=== PATIENT | female | born 1960 | race Caucasian/White ===

== ENCOUNTER → 2017-10-05 01:01 | Outpatient (CLI) | payer MEDICARE, MEDICAID, SELFPAY ==
[2017-10-05] MEDS: Breeza Beverage 473 ML BTL PO ×2 (09:32→09:33)
[2017-10-05] MEDS: Omnipaque 350 MG/ML 50 ML BTL PO (09:33)
[2017-10-05] MEDS: Omnipaque 350 MG/ML 100 ML BTL IV (11:09)
--- NOTE | 2017-10-05 11:14 | DI.RPTCT_ITS ---
SYMPTOM/DIAGNOSIS: ABD BLOATING, R14.0, ABNL WT LOSS R53.4. ABD DISCOMFORT, SEVERE CONSTIPATION CT ABDOMEN AND PELVIS: CT scan of the abdomen and pelvis was performed following the uneventful administration of intravenous and oral contrast material. Comparison is . The visualized lung bases are clear. There is no evidence of an hepatic mass. The patient is status post cholecystectomy. No biliary ductal dilatation is seen. The portal and superior mesenteric veins are patent. The pancreas, spleen and adrenal glands are unremarkable. The kidneys show normal and symmetric enhancement. There is a cyst again seen in the mid pole of the right kidney. There is a calcification seen in the left renal pelvis with mild dilatation of the left renal collecting system. It has migrated in to the renal pelvis compared to the examination from 2016. The left kidney is otherwise unremarkable. The urinary bladder is intact. The reproductive organs appear absent. Please refer to the patient's surgical history. There is atherosclerosis of the abdominal aorta but no aneurysmal dilatation. No significant abdominal or pelvic adenopathy, ascites or pneumoperitoneum present. The bowel shows no evidence of obstruction or inflammation. There is a normal appendix present. There is fluid and stool seen throughout the colon. Particularly the descending and sigmoid colon. Degenerative changes are seen in the spine. IMPRESSION: 1. Calculus seen in the left renal pelvis with mild dilatation of the collecting system, partially obstructing stone should be considered. Please correlate clinically. 2. Fluid and stool filled distal colon. No evidence of a bowel inflammatory process or obstruction.
== END ==
PROVIDERS: PCP Family Medicine; Visit Provider Family Medicine
DX: R14.0 Abdominal distension (gaseous) (principal); R63.4 Abnormal weight loss; K59.00 Constipation, unspecified; N20.0 Calculus of kidney
CPT/HCPCS: 74177; Q9967; 36415; 82565; J3490

== ENCOUNTER → 2017-10-22 11:57 | Outpatient (CLI) | payer MEDICARE, MEDICAID, SELFPAY ==
[2017-10-22 12:22] LABS: Absolute Basophil Count 0.02 k/cumm (0.0-0.2); Absolute Eosinophil Count 0.06 k/cumm (0.0-0.7); Absolute Lymphocyte Count 1.78 k/cumm (1.2-3.4); Absolute Neutrophil Count 3.98 k/cumm (1.2-6.7); Basophils % 0.3; HCT 41.9 % (36.0-46.0); HGB 13.8 g/dL (12.0-15.5); Mean Corp. HGB Concentration 32.9 g/dL (32.0-36.0); Mean Corpuscular Hemoglobin 30.5 pg (27.0-33.0); Mean Corpuscular Volume 92.7 fL (80-95); Mean Platelet Volume 11.2 fL (8.0-11.0); Monocytes % 4.9; Neutrophils % 64.8; Platelet Count 203 x1000/uL (130-400); RBC 4.52 m/cumm (4.00-5.20); RBC Distribution Width 13.6 % (11.7-14.6); White Blood Cell Count 6.14 k/cumm (4.4-10.8)
[2017-10-22 13:22] LABS: Lithium 0.92 mmol/L (0.60-1.20)
[2017-10-22 14:03] LABS: ALT 26 U/L (12-78); AST 15 U/L (15-37); Albumin 3.9 g/dL (3.4-5.0); Alkaline Phosphatase 73 U/L (46-116); Anion Gap 6.5 mmol/L (3-11); BUN 12 mg/dL (7-18); Bilirubin, Total 0.4 mg/dL (0.2-1.0); CO2 26.5 mmol/L (21.0-32.0); CREATININE 0.84 mg/dL (0.55-1.02); Calcium 9.6 mg/dL (8.5-10.1); Chloride 109 mmol/L (98-107); Glucose 130 mg/dL (70-100); Potassium 4.1 mmol/L (3.5-5.1); Sodium 142 mmol/L (136-145); TSH (W/Ref FT4) 0.04 uIU/mL (0.358-3.74); Total Protein 7.3 g/dL (6.4-8.2)
[2017-10-22 14:26] LABS: FREE T4 1.23 ng/dL (0.76-1.46)
== END ==
PROVIDERS: PCP Nurse Practitioner Adult Health; Visit Provider Nurse Practitioner Psychiatric/Mental Health
DX: N20.0 Calculus of kidney (principal); F31.9 Bipolar disorder, unspecified; Z51.81 Encounter for therapeutic drug level monitoring; Z79.899 Other long term (current) drug therapy
CPT/HCPCS: 36415; 80053; 99215; 80178; 84439; 84443; 85025

== ENCOUNTER 2017-11-05 11:54 | Day surgery (SDC) | payer MEDICARE, MEDICAID, SELFPAY ==
[2017-11-05 12:25] VITALS: BP 114/75; PULSE 58; RESP 16; TEMP 37.3; O2SAT 99
--- NOTE | 2017-11-05 14:14 | NUR.NOTE ---
Addendum entered by Zuly Awad 11/05/17 14:17: from [facility], who expressed concern about it pt. were to go home( specifically on pain medications or it pt. were to run a fever) she would be home alone, case decided to be postponed until it can be arranged for patient to stay overnight for observation Original Note: 1328: MD in to see pt. and after talking to Randi Angeles,Nursing Note:
== END 2017-11-05 13:28 | disposition home or self-care (01) ==
LOC: SUR 11:55
PROVIDERS: PCP Family Medicine; Visit Provider Urology
DX: N20.0 Calculus of kidney (principal); Z53.8 Procedure and treatment not carried out for other reasons; Y66 Nonadministration of surgical and medical care
CPT/HCPCS: 52353

== ENCOUNTER 2017-11-12 15:46 | Observation (INO) | payer MEDICARE, MEDICAID, SELFPAY ==
[2017-11-12] VITALS (7 sets, daily range): BP systolic 117–123; BP diastolic 67–79; PULSE 58–60; RESP 16–22; TEMP 36.3–37.4; O2SAT 96–100
[2017-11-12] MEDS: Lactated Ringers 1,000 ML 80 ML IV (13:08)
--- NOTE | 2017-11-12 13:56 | W.PM.HP.N ---
Assessment and Plan (1) Calculus of left kidney: Current visit: Yes Status: Acute Will proceed with flexible ureteroscopy with stone manipulation. History of Present Illness Chief Complaint: Left kidney stone Narrative: This is a 57 year old woman who was evaluated for abdominal bloating and weight loss. She had a CT scan that demonstrated a rather large left UPJ stone. She presents for stone manipulation. She has no fever, chills, nausea or vomiting. She has no current pain. The patient lives alone and has no one to stay with her overnight. She will be monitored here overnight as an observation status. Review of Systems Constitutional Denies chills and Denies fever(s) ENT Denies sore throat Cardiovascular Denies chest pain and Denies palpitations Respiratory Denies cough and Denies hemoptysis Gastrointestinal Denies abdominal pain Neurologic Denies convulsions Psychiatric Comments: bipolar Endocrine Denies palpitations Hematologic/Lymphatic Denies easy bleeding and Denies easy bruising PFSH Medical History Calculus of left kidney (Acute) Bipolar 1 disorder (Chronic) Colon polyp (Chronic) GERD (gastroesophageal reflux disease) (Chronic) Hx of hysterectomy (Chronic) Hyperlipidemia (Chronic) Hypothyroid (Chronic) Social History Smoking/Tobacco Use Status: Former Tobacco Use Surgical History History of section (Chronic) History of cholecystectomy (Chronic) History of colon resection (Chronic) History of hernia repair (Chronic) History of tonsillectomy (Chronic) History of tubal ligation (Chronic) Meds Home Medications Medication Instructions Recorded Confirmed Type omeprazole 20 mg PO DAILY 11/18/14 11/12/17 History olanzapine [Zyprexa] 20 mg PO HS 12/08/14 11/12/17 History lorazepam 1 mg PO HS PRN PRN 12/27/14 11/12/17 History levothyroxine 125 mcg PO DAILY 11/01/17 11/12/17 History lithium carbonate 900 mg PO HS 11/01/17 11/12/17 History lorazepam 1 mg PO HS 11/01/17 11/12/17 History pcopgop-xkapgpqpciwna-pvcpyyvd 250 mg PO PRN PRN 11/05/17 11/12/17 History [Excedrin Migraine] Allergies Allergy/AdvReac Type Severity Reaction Status Date / Time codeine [Codeine] Allergy Severe Anaphylaxsi Unverified 11/12/17 12:40 s glueten Allergy Intermediate Gi upset Uncoded 11/12/17 12:40 lactose intol Allergy Mild Gi upset Uncoded 11/12/17 12:40 msg AdvReac Mild GI Upset Uncoded 11/12/17 12:40 Exam Const General: comfortable Other: blunted affect Neck Neck: supple Resp Effort & Inspection: normal respiratory effort Auscultation: clear to auscultation bilaterally Cardio Rate: regular rate Heart Sounds: murmur GI Palpation: soft, no guarding and no masses Skin General skin exam: no jaundice Neuro General: alert, awake and oriented x3
--- NOTE | 2017-11-12 14:10 | DI.RAD_ITS ---
SYMPTOM/DIAGNOSIS: LT KIDNEY STONE OR RETROGRADE: Fluoroscopy Time: 39.7 seconds Intraoperative films demonstrate a left retrograde examination carried out by Dr. Eisenberg. Please see the procedure report for further information.
[2017-11-12] MEDS: Lidocaine 2% Jelly 11 ML SYR (15:03)
[2017-11-12] MEDS: IOHEXOL 50 ML (15:03)
--- NOTE | 2017-11-12 16:26 | ROE_ITS ---
DATE OF PROCEDURE: November 12, 2017 PREOPERATIVE DIAGNOSIS: Left kidney stone. POSTOPERATIVE DIAGNOSIS: Same. PROCEDURE: Cystoscopy; left retrograde pyelogram; left flexible ureteroscopy with holmium laser of s tone; evacuation of stone fragments; insert left ureteral stent. SURGEON: Timbo Eisenberg M.D. ANESTHESIA: General. COMPLICATIONS: None. ESTIMATED BLOOD LOSS: Minimal. HISTORY: This is a 57-year-old woman who was previously evaluated for abdominal bloating and weight loss. She had a CT scan completed. The scan demonstrated a rather large left kidney stone. The sto ne had migrated to the renal pelvis and was causing some mild hydronephrosis. She was not experiencing any symptoms from the stone, but given its size and location, as well as the hydronephrosis, we recommended treating the stone. OPERATIVE REPORT: The patient was brought to the operating room on 11/12/17. After successful induc tion of general anesthesia, she was placed in the dorsal lithotomy position. Her genitalia was prepp ed and draped. 2% Xylocaine jelly was instilled into the urethra to act as a local anesthetic. A 22 Guatemalan rigid cystoscope was passed through the urethra into the bladder. The bladder was inspec dany with a 30-degree lens. The bladder neck was entered and the bladder mucosa was inspected. The left ureteral orifice was milton ntified. The orifice was cannulated with a 6 Guatemalan access catheter. A retrograde film was obtaine d by injecting Omnipaque through the access catheter under fluoroscopic guidance. There appeared to be a very faint filling defect in the lower pole calyx. This would be consistent w ith her known kidney stone. A Glidewire was passed up through the access catheter and positioned such that the proximal end was i n the upper pole calyx. The access catheter and cystoscope were then withdrawn. A dual-lumen catheter was passed over the wire and a second wire was introduced. We chose one of the wires as a working wire and the other as a safety wire. We removed the dual-lumen catheter and passed a ureteral access sheath over the working wire. The wo rking wire was removed. The flexible cystoscope was then passed through the access sheath into the r enal pelvis. We were able to visualize the stone at the junction of the lower pole calyx and the renal pelvis. We treated the stone with a 272 micron holmium laser fiber. We used a power setting of 800 and a rate of 8. The stone fragmented very well. Once the stone was broken into more manageable fragments, we grasped each of the visible fragments in a ZeroTip stone basket and removed each fragment. Each of these we re collected and sent to pathology for chemical analysis. After multiple passages and stone evacuations, there was some clot remaining in the renal calyces. T his obscured our view somewhat. We elected to place a ureteral stent. When we remove her stent in a few weeks, we will plan on reintroducing the ureteroscope to make sure no additional stone fragments remain. We removed the access sheath. We placed a 4.8 Guatemalan variable-length stent over the safety wire. Th e proximal end could be seen in the upper pole calyx and the distal end was within the bladder. The patient tolerated this procedure well. There were no complications. cc: Jordan Reyes M.D.
[2017-11-12] MEDS: Lactated Ringers 1,000 ML 100 ML IV (16:50)
[2017-11-12] MEDS: Ketorolac 15 MG/ML VIAL IVP (18:52)
[2017-11-12] MEDS: traMADol 50 MG TAB PO (21:25)
[2017-11-12] MEDS: LORazepam 1 MG TAB PO (21:32)
[2017-11-12] MEDS: OLANZapine 10 MG TAB 20 MG PO (21:32)
[2017-11-13 00:06] VITALS: BP 107/63; PULSE 65; RESP 15; TEMP 37; O2SAT 94
[2017-11-13] MEDS: Lactated Ringers 1,000 ML 100 ML IV (03:27)
[2017-11-13] MEDS: Levothyroxine 125 MCG TAB PO (05:29)
--- NOTE | 2017-11-13 07:06 | W.PM.PROGNOT ---
Date of service: 11/13/17 Time of Service: 07:06 Assessment and Plan (1) Calculus of left kidney: Current visit: Yes Status: Acute Will discharge to home today She has a ureteral stent in place - she will need to return for a cysto with stent removal in 2 to 4 weeks She will then need a renal US to r/o silent hydronephrosis Subjective Interval history since last seen: POD #1 Pain well controlled. Pt had some nausea last evening but improved now. Wants to go home. Exam Narrative Exam Narrative: Looks well. Vital signs documented elsewhere Abdomen soft with no tenderness Objective Objective Clinical Data: Vital Signs Temp 37 C 11/13/17 00:06 Pulse 65 11/13/17 00:06 Resp 15 11/13/17 00:06 BP 107/63 11/13/17 00:06 Pulse Ox 94 L 11/13/17 00:06 Intake & Output 11/12/17 11/12/17 11/13/17 11:59 23:59 11:59 Intake Total 1400.000 / 3665.251 0181 / 1400 Output Total 300 / 300 Balance 1100.000 / 1425.430 5933 / 1400 Weight 68 kg Intake: IV 1100.000 / 5939.613 3315 / 1000 Oral 300 / 300 400 / 400 Output: Urine 300 / 300 Other: Urine Color Dark Red Urine Appearance Hematuria Emesis Description None Voiding Methods Toilet
--- NOTE | 2017-11-13 07:10 | PGE_ITS ---
Date of service: 11/13/17 Time of Service: 07:06 Assessment and Plan (1) Calculus of left kidney: Current visit: Yes Status: Acute Will discharge to home today She has a ureteral stent in place - she will need to return for a cysto with stent removal in 2 to 4 weeks She will then need a renal US to r/o silent hydronephrosis Subjective Interval history since last seen: POD #1 Pain well controlled. Pt had some nausea last evening but improved now. Wants to go home. Exam Narrative Exam Narrative: Looks well. Vital signs documented elsewhere Abdomen soft with no tenderness Objective Objective Clinical Data: Vital Signs Temp 37 C 11/13/17 00:06 Pulse 65 11/13/17 00:06 Resp 15 11/13/17 00:06 BP 107/63 11/13/17 00:06 Pulse Ox 94 L 11/13/17 00:06 Intake & Output 11/12/17 11/12/17 11/13/17 11:59 23:59 11:59 Intake Total 1400.000 / 6079.715 7130 / 1400 Output Total 300 / 300 Balance 1100.000 / 0429.631 6439 / 1400 Weight 68 kg Intake: IV 1100.000 / 9519.351 7098 / 1000 Oral 300 / 300 400 / 400 Output: Urine 300 / 300 Other: Urine Color Dark Red Urine Appearance Hematuria Emesis Description None Voiding Methods Toilet
--- NOTE | 2017-11-13 07:11 | W.PM.DS.N ---
Date of service: 11/13/17 Time of Service: 07:11 DS: Diagnosis Discharge Diagnosis (1) Calculus of left kidney: Status: Acute Discharge Plan Disposition Patient Disposition: HOME Condition: Stable Discharge Details Reason For Visit: L RENAL STONE Admit Date/Time: 11/12/17 15:46 Admit Provider: Timbo Eisenberg Attending Provider: Timbo Eisenberg Primary Care Provider: Jordan Reyes [facility] Course Hospital Course: The patient underwent flexible ureteroscopy with holmium laser lithotripsy and stone fragment evacuation on 11/12/17. She was kept overnight for IV antibiotics and pain control. She did quite well and is ready for discharge on POD #1. She is tolerating PO. Her pain is well controlled. She is afebrile. Home Meds and New Rx's Prescriptions: No Action tramadol 50 mg tablet 50 mg PO Q6H PRN (Reason: pain) Qty: 10 RF: 0 omeprazole 20 MG capsule,delayed release(DR/EC) 20 mg PO DAILY RF: 0 olanzapine [Zyprexa] 10 MG tablet 20 mg PO HS RF: 0 lorazepam 1 MG tablet 1 mg PO HS PRN PRNRF: 0 hydrocortisone 30 GM cream 1 applic Topical BID PRN PRNQty: 1 RF: 0 lithium carbonate 300 mg Tablet Extended Release 900 mg PO HS RF: 0 lorazepam 1 mg Tablet 1 mg PO HS RF: 0 levothyroxine 125 mcg Capsule 125 mcg PO DAILY RF: 0 frmrlmt-ancadqpihfpgz-ngdxjihg [Excedrin Migraine] 250-250-65 mg Tablet 250 mg PO PRN PRNRF: 0 Discharge Instructions Additional Instructions: Pt will be contacted by my office to arrange cysto with stent removal in 2 to 4 weeks Caution pt not to be alarmed if she notices blood in urine while stent is in place Activity:: Activity as Tolerated Equipment/Supplies:: No Equipment Needed Diet:: No restrictions Discharge Orders Discharge Orders: Discharge Order (Routine); Ordered 11/13/17 Ordered By: Timbo Eisenberg Exam Narrative Exam Narrative: At the time of discharge, she appears comfortable She does not appear septic or toxic Her abdomen is soft without mass or guarding DS: Data Vitals/I&O Vitals and I&O: Vital Signs Temp 37 C 11/13/17 00:06 Pulse 65 11/13/17 00:06 Resp 15 11/13/17 00:06 BP 107/63 11/13/17 00:06 Pulse Ox 94 L 11/13/17 00:06 Intake & Output 11/12/17 11/12/17 11/13/17 11:59 23:59 11:59 Intake Total 1400.000 / 4987.301 6070 / 1400 Output Total 300 / 300 Balance 1100.000 / 1282.471 3359 / 1400 Weight 68 kg Intake: IV 1100.000 / 1763.652 5946 / 1000 Oral 300 / 300 400 / 400 Output: Urine 300 / 300 Other: Urine Color Dark Red Urine Appearance Hematuria Emesis Description None Voiding Methods Toilet Labs on day of discharge: Labs from last 24 hours 11/12/17 15:32 Stone Analysis Pending Stone Source Pending Stone Constituent 1 Pending Stone Constituent 2 Pending Stone Constituent 3 Pending Major Stone Nidus Pending Minor Stone Nidus Pending Major Stone Shell Pending Minor Stone Shell Pending Stone Comment Pending
--- NOTE | 2017-11-13 07:19 | DSE_ITS ---
Date of service: 11/13/17 Time of Service: 07:11 DS: Diagnosis Discharge Diagnosis (1) Calculus of left kidney: Status: Acute Discharge Plan Disposition Patient Disposition: HOME Condition: Stable Discharge Details Reason For Visit: L RENAL STONE Admit Date/Time: 11/12/17 15:46 Admit Provider: Timbo Eisenberg Attending Provider: Timbo Eisenberg Primary Care Provider: Jordan Reyes [facility] Course Hospital Course: The patient underwent flexible ureteroscopy with holmium laser lithotripsy and stone fragment evacuation on 11/12/17. She was kept overnight for IV antibiotics and pain control. She did quite well and is ready for discharge on POD #1. She is tolerating PO. Her pain is well controlled. She is afebrile. Home Meds and New Rx's Prescriptions: No Action tramadol 50 mg tablet 50 mg PO Q6H PRN (Reason: pain) Qty: 10 RF: 0 omeprazole 20 MG capsule,delayed release(DR/EC) 20 mg PO DAILY RF: 0 olanzapine [Zyprexa] 10 MG tablet 20 mg PO HS RF: 0 lorazepam 1 MG tablet 1 mg PO HS PRN PRNRF: 0 hydrocortisone 30 GM cream 1 applic Topical BID PRN PRNQty: 1 RF: 0 lithium carbonate 300 mg Tablet Extended Release 900 mg PO HS RF: 0 lorazepam 1 mg Tablet 1 mg PO HS RF: 0 levothyroxine 125 mcg Capsule 125 mcg PO DAILY RF: 0 xrogqkv-ceewdvzttxofr-ubgqnhav [Excedrin Migraine] 250-250-65 mg Tablet 250 mg PO PRN PRNRF: 0 Discharge Instructions Additional Instructions: Pt will be contacted by my office to arrange cysto with stent removal in 2 to 4 weeks Caution pt not to be alarmed if she notices blood in urine while stent is in place Activity:: Activity as Tolerated Equipment/Supplies:: No Equipment Needed Diet:: No restrictions Discharge Orders Discharge Orders: Discharge Order (Routine); Ordered 11/13/17 Ordered By: Timbo Eisenberg Exam Narrative Exam Narrative: At the time of discharge, she appears comfortable She does not appear septic or toxic Her abdomen is soft without mass or guarding DS: Data Vitals/I&O Vitals and I&O: Vital Signs Temp 37 C 11/13/17 00:06 Pulse 65 11/13/17 00:06 Resp 15 11/13/17 00:06 BP 107/63 11/13/17 00:06 Pulse Ox 94 L 11/13/17 00:06 Intake & Output 11/12/17 11/12/17 11/13/17 11:59 23:59 11:59 Intake Total 1400.000 / 0845.225 5604 / 1400 Output Total 300 / 300 Balance 1100.000 / 0518.144 8787 / 1400 Weight 68 kg Intake: IV 1100.000 / 1750.585 6824 / 1000 Oral 300 / 300 400 / 400 Output: Urine 300 / 300 Other: Urine Color Dark Red Urine Appearance Hematuria Emesis Description None Voiding Methods Toilet Labs on day of discharge: Labs from last 24 hours 11/12/17 15:32 Stone Analysis Pending Stone Source Pending Stone Constituent 1 Pending Stone Constituent 2 Pending Stone Constituent 3 Pending Major Stone Nidus Pending Minor Stone Nidus Pending Major Stone Shell Pending Minor Stone Shell Pending Stone Comment Pending
[2017-11-13 07:27] VITALS: BP 89/59; PULSE 56; RESP 18; TEMP 36.5; O2SAT 97
[2017-11-13] MEDS: Omeprazole 20 MG CAPCR PO (07:50)
--- NOTE | 2017-11-13 10:20 | PDOC.CMIN ---
- If Service Date Differs Date of service: 11/13/17 Time of Service: 10:20 Care Management Initial Assess REASON FOR HOSPITALIZATION:: Calculus of (L) kidney PAST MEDICAL HISTORY/PAST SURGICAL HISTORY:: Bipolar 1 disorder, Colon polyp, GERD, Hyperlipidemia, Hypothyroid, H/O , Cholecystectomy, Hysterectomy, Colon resection, Hernia repair, Tonsillectomy, Tubal ligation PREVIOUS FUNCTIONAL STATUS/SOCIAL/FAMILY SUPPORTS:: Keri resides alone in [facility]. She is independent at baseline, drives, and manages ADL's. CURRENT FUNCTIONAL STATUS:: Lying in bed, open to discussion ADVANCE DIRECTIVES:: None on file Has patient been provided with information about the portal?: Yes Did the patient sign up for the portal?: Yes CODE STATUS:: Full Code INSURANCE COVERAGE / FINANCIAL ISSUES:: Medicare, Medicaid CURRENT HOME/COMMUNITY SERVICES/EQUIPMENT:: Currently Keri has no services or medical equipment in the community. PRIMARY CARE PHYSICIAN:: Dr. Reyes POTENTIAL DISCHARGE NEEDS:: F/U appointment with Dr. Eisenberg PATIENT/FAMILY EDUCATION NEEDS:: Review DC instructions, any limitations, and ongoing DC planning discussion. Discuss Ask Me Three ANTICIPATED BARRIERS TO DISCHARGE:: None identified at this time. TRANSPORTATION:: Via private vehicle PLAN:: Keir will return home with no services. She will F/U with Dr. Eisenberg and plan of care as prescribed. Keri to transport via private vehicle.
--- NOTE | 2017-11-13 10:35 | INITIAL_ITS ---
- If Service Date Differs Date of service: 11/13/17 Time of Service: 10:20 Care Management Initial Assess REASON FOR HOSPITALIZATION:: Calculus of (L) kidney PAST MEDICAL HISTORY/PAST SURGICAL HISTORY:: Bipolar 1 disorder, Colon polyp, GERD, Hyperlipidemia, Hypothyroid, H/O , Cholecystectomy, Hysterectomy , Colon resection, Hernia repair, Tonsillectomy, Tubal ligation PREVIOUS FUNCTIONAL STATUS/SOCIAL/FAMILY SUPPORTS:: Keri resides alone in [facility]. She is independent at baseline, drives, and manages ADL's. CURRENT FUNCTIONAL STATUS:: Lying in bed, open to discussion ADVANCE DIRECTIVES:: None on file Has patient been provided with information about the portal?: Yes Did the patient sign up for the portal?: Yes CODE STATUS:: Full Code INSURANCE COVERAGE / FINANCIAL ISSUES:: Medicare, Medicaid CURRENT HOME/COMMUNITY SERVICES/EQUIPMENT:: Currently Keri has no services or medical equipment in the community. PRIMARY CARE PHYSICIAN:: Dr. Reyes POTENTIAL DISCHARGE NEEDS:: F/U appointment with Dr. Eisenberg PATIENT/FAMILY EDUCATION NEEDS:: Review DC instructions, any limitations, and ongoing DC planning discussion. Discuss Ask Me Three ANTICIPATED BARRIERS TO DISCHARGE:: None identified at this time. TRANSPORTATION:: Via private vehicle PLAN:: Keri will return home with no services. She will F/U with Dr. Eisenberg and plan of care as prescribed. Keri to transport via private vehicle.
--- NOTE | 2017-11-13 10:36 | PDOC.CMDIS ---
- If Service Date Differs Date of service: 11/13/17 Time of Service: 10:36 LACE Index Scoring Tool - Questions: Length of Stay (in days): 2 Acuity (Admit via E.D.?): No E.D. Visits: 3 - Answers: Total Score: 5 Risk of Readmission: Low Risk Care Management Discharge Reason for Hospitalization: Calculus of (L) kidney Discharge Plan: Keri will return home today with no services. She will F/U with Dr. Eisenberg and plan of care as prescribed. Keri will transport via private vehicle.
== END 2017-11-13 11:20 | disposition home or self-care (01) ==
LOC: MS 16:52
PROVIDERS: Admitting Provider Urology; PCP Family Medicine; Visit Provider Urology
PROC: 0TF48ZZ Fragmentation in Left Kidney Pelvis, Via Natural or Artificial Opening Endoscopic (ICD-10-PCS; CPT 52356; principal; 2017-11-12 13:00)
DX: N20.0 Calculus of kidney (principal); E03.9 Hypothyroidism, unspecified; K21.9 Gastro-esophageal reflux disease without esophagitis
CPT/HCPCS: 52356; 99217; NC; 74420; 82360; G0378; J0131; J0690; J1100; J1885; J2250; J2405; J3010; J3490; Q9967

== ENCOUNTER 2017-12-10 10:50 | Day surgery (SDC) | payer MEDICARE, MEDICAID, SELFPAY ==
--- NOTE | 2017-12-10 10:51 | W.PM.HP.N ---
Assessment and Plan (1) Calculus of left kidney: Current visit: Yes Status: Resolved Will remove ureteral stent. After discharge, we will arrange a renal ultrasound in 4 to 6 weeks. History of Present Illness Chief Complaint: Retained left ureteral stent Narrative: This is a 57 year old woman who was previously identified as having a 1 cm left renal pelvic stone. She was treated with ureteroscopy and holmium laser of her stone with stone extraction. a stent was left in place. Her stone analysis demonstrates 100% calcium oxalate monohydrate. She presents for stent removal. She prefers to have the procedure done here in the OR rather than in the office. Review of Systems Constitutional Denies chills and Denies fever(s) Eyes Denies change in vision ENT Denies sinus pain Cardiovascular Denies chest pain, Denies syncope and Denies irregular heart rhythm Respiratory Denies cough and Denies hemoptysis Gastrointestinal Reports bloating Genitourinary Comments: Has had frequency and occasional dysuria since her stent was placed Musculoskeletal Reports arthralgias Neurologic Denies syncope PFSH Medical History Calculus of left kidney (Resolved) Bipolar 1 disorder (Chronic) Colon polyp (Chronic) GERD (gastroesophageal reflux disease) (Chronic) Hx of hysterectomy (Chronic) Hyperlipidemia (Chronic) Hypothyroid (Chronic) Social History Smoking/Tobacco Use Status: Former Tobacco Use Surgical History History of section (Chronic) History of cholecystectomy (Chronic) History of colon resection (Chronic) History of hernia repair (Chronic) History of tonsillectomy (Chronic) History of tubal ligation (Chronic) Meds Home Medications Medication Instructions Recorded Confirmed Type omeprazole 20 mg PO DAILY 11/18/14 12/10/17 History olanzapine [Zyprexa] 20 mg PO HS 12/08/14 12/10/17 History lorazepam 1 mg PO HS PRN PRN 12/27/14 12/10/17 History levothyroxine 125 mcg PO DAILY 11/01/17 12/10/17 History lithium carbonate 900 mg PO HS 11/01/17 12/10/17 History lorazepam 1 mg PO HS 11/01/17 12/10/17 History lxneoxz-dzllwelvdnovg-kkbiumdq 250 mg PO PRN PRN 11/05/17 12/10/17 History [Excedrin Migraine] tramadol 50 mg tablet 50 mg PO Q6H PRN #10 tab 11/13/17 12/10/17 Rx Allergies Allergy/AdvReac Type Severity Reaction Status Date / Time codeine [Codeine] Allergy Severe Anaphylaxsi Unverified 11/12/17 12:40 s glueten Allergy Intermediate Gi upset Uncoded 11/12/17 12:40 lactose intol Allergy Mild Gi upset Uncoded 11/12/17 12:40 msg AdvReac Mild GI Upset Uncoded 11/12/17 12:40 Exam Const General: cooperative, healthy appearing and comfortable Neck Neck: supple Resp Auscultation: clear to auscultation bilaterally Cardio Rate: regular rate GI Palpation: soft and no masses Skin General skin exam: no rashes or lesions noted Psych Affect: blunted
[2017-12-10 11:08] VITALS: BP 122/74; PULSE 59; RESP 16; TEMP 37.8; O2SAT 98
[2017-12-10] MEDS: Lactated Ringers 1,000 ML 80 ML IV (11:23)
[2017-12-10] MEDS: Lidocaine 2% Jelly 6 ML SYR (12:16)
--- NOTE | 2017-12-10 12:22 | W.PM.DSUDISC ---
Discharge Plan Disposition Patient Disposition: HOME Condition: Stable Discharge Details Reason For Visit: stent removal Attending Provider: Timbo Eisenberg Primary Care Provider: Jordan Reyes [place] Meds and New Rx's Prescriptions: No Action tramadol 50 mg tablet 50 mg PO Q6H PRN (Reason: pain) Qty: 10 RF: 0 omeprazole 20 MG capsule,delayed release(DR/EC) 20 mg PO DAILY RF: 0 olanzapine [Zyprexa] 10 MG tablet 20 mg PO HS RF: 0 lorazepam 1 MG tablet 1 mg PO HS PRN PRNRF: 0 lithium carbonate 300 mg Tablet Extended Release 900 mg PO HS RF: 0 lorazepam 1 mg Tablet 1 mg PO HS RF: 0 levothyroxine 125 mcg Capsule 125 mcg PO DAILY RF: 0 qxtzlwl-gcpvvyoyrobqc-tyzdried [Excedrin Migraine] 250-250-65 mg Tablet 250 mg PO PRN PRNRF: 0 Discharge Instructions Additional Instructions: F/U in 6 weeks - will need renal ultrasound on day of visit Activity:: Activity as Tolerated Diet:: As Tolerated Discharge Orders Discharge Orders: Discharge Order (Routine); Ordered 12/10/17 Ordered By: Timbo Eisenberg DS: Diagnosis Discharge Diagnosis (1) Calculus of left kidney: Status: Resolved
[2017-12-10 12:55] VITALS: BP 106/76; PULSE 54; RESP 18; TEMP 36.8; O2SAT 97
--- NOTE | 2017-12-10 14:26 | ROE_ITS ---
DATE OF PROCEDURE: December 10, 2017 PREOPERATIVE DIAGNOSIS: Left renal stone. POSTOPERATIVE DIAGNOSIS: Same. PROCEDURE: Flexible cystoscopy with stent removal. SURGEON: Timbo Eisenberg M.D. ANESTHESIA: Monitored Anesthesia Care with local. COMPLICATIONS: None. HISTORY: This is a 57-year-old woman who was being evaluated for abdominal discomfort and bloating. She was identified as having a 1 cm left renal pelvic stone. She was treated with flexible ureteros copy and holmium laser. Her stone fragments that were removed were identified as 100% calcium oxalat e monohydrate. She presents now for stent removal. She was not willing to have this done in the office, so she pres ents here to the operating room for the procedure under Monitored Anesthesia Care. OPERATIVE REPORT: The patient was brought to the operating room on 12/10/17. She was given monitore d anesthesia and placed in the frog leg position. Her genitalia was prepped. The flexible cystoscop e was passed through the urethra into the bladder. The stent could be seen protruding from the left ureteral orifice. The stent was grasped in an alligator forceps and removed in its entirety. The patient tolerated this procedure well with no complications. cc: Jordan Reyes M.D.
== END 2017-12-10 13:18 | disposition home or self-care (01) ==
PROVIDERS: PCP Family Medicine; Visit Provider Urology
PROC: 0TJB8ZZ Inspection of Bladder, Via Natural or Artificial Opening Endoscopic (ICD-10-PCS; CPT 52000; principal; 2017-12-10 12:00)
DX: Z45.89 Encounter for adjustment and management of other implanted devices (principal); Z96.0 Presence of urogenital implants
CPT/HCPCS: 52310; NC; J0690

== ENCOUNTER → 2017-12-11 09:43 | Outpatient (BNVA) | payer MEDICARE, MEDICAID, SELFPAY | PROVIDERS: PCP Family Medicine; Visit Provider Urology | DX: R69 Illness, unspecified (principal) ==

== ENCOUNTER 2018-01-22 00:55 | Outpatient (CLI) | payer MEDICARE, MEDICAID, SELFPAY ==
--- NOTE | 2018-01-22 09:00 | DI.US_ITS ---
SYMPTOM/DIAGNOSIS: F/U CYSTO AND STENT, ? RESIDUAL STONE OR HYDRONEPHROSIS RENAL ULTRASOUND: Comparison is made with CT dated 05 Oct 2017. The right kidney measures 7.5 cm in length. The left kidney measures 11.2 cm in length. No stones are identified. There is a question of mild left hydronephrosis. A 12 mm cyst is noted in the mid right kidney. The prevoid bladder volume measures 304 cc. There is a 25 cc post void residual. Both ureteral jets were visualized. IMPRESSION: Mild left hydronephrosis. No stones are visible.
== END 2018-01-22 01:15 ==
PROVIDERS: PCP Family Medicine; Visit Provider Urology
DX: N13.30 Unspecified hydronephrosis (principal); N28.1 Cyst of kidney, acquired
CPT/HCPCS: 36415; 51798; 76770; 80053; 99213; 80178; 84443; 85025

== ENCOUNTER 2018-01-22 10:34 | Outpatient (CLI) | payer MEDICARE, MEDICAID, SELFPAY ==
[2018-01-22 11:02] LABS: Abs Immature Grans 0.01 k/cumm (0.0-0.09); Absolute Basophil Count 0.03 k/cumm (0.0-0.2); Absolute Eosinophil Count 0.07 k/cumm (0.0-0.7); Absolute Monocyte Count 0.34 k/cumm (0.11-0.7); Absolute Neutrophil Count 4.69 k/cumm (1.2-6.7); Basophils % 0.4; HGB 13.5 g/dL (12.0-15.5); Immature Grans % 0.1; Mean Corp. HGB Concentration 32.9 g/dL (32.0-36.0); Mean Corpuscular Hemoglobin 31.1 pg (27.0-33.0); Mean Corpuscular Volume 94.5 fL (80-95); Mean Platelet Volume 11.3 fL (8.0-11.0); Monocytes % 4.8; Neutrophils % 66.7; Platelet Count 202 x1000/uL (130-400); RBC 4.34 m/cumm (4.00-5.20); RBC Distribution Width 13.1 % (11.7-14.6); White Blood Cell Count 7.04 k/cumm (4.4-10.8)
[2018-01-22 11:51] LABS: Lithium 0.99 mmol/L (0.60-1.20)
[2018-01-22 12:25] LABS: ALT 26 U/L (12-78); AST 16 U/L (15-37); Albumin 4.1 g/dL (3.4-5.0); Alkaline Phosphatase 71 U/L (46-116); Anion Gap 8.8 mmol/L (3-11); BUN 12 mg/dL (7-18); Bilirubin, Total 0.6 mg/dL (0.2-1.0); CO2 27.2 mmol/L (21.0-32.0); CREATININE 0.81 mg/dL (0.55-1.02); Calcium 10.3 mg/dL (8.5-10.1); Chloride 108 mmol/L (98-107); Glucose 97 mg/dL (70-100); Potassium 4.5 mmol/L (3.5-5.1); Sodium 144 mmol/L (136-145); TSH (W/Ref FT4) 0.58 uIU/mL (0.358-3.74); Total Protein 7.4 g/dL (6.4-8.2)
== END 2018-01-22 10:54 ==
PROVIDERS: PCP Family Medicine; Visit Provider Nurse Practitioner Psychiatric/Mental Health
DX: F31.9 Bipolar disorder, unspecified (principal); Z51.81 Encounter for therapeutic drug level monitoring; Z79.899 Other long term (current) drug therapy
CPT/HCPCS: 36415; 80053; 80178; 84443; 85025

== ENCOUNTER 2018-03-11 01:32 | Outpatient (CLI) | payer MEDICARE, MEDICAID, SELFPAY ==
--- NOTE | 2018-03-11 08:56 | DI.US_ITS ---
SYMPTOMS/DIAGNOSIS: MONITORING HYDRONEPHROSIS, N13.30 RENAL ULTRASOUND: Comparison is made with December,. There is stable mild to moderate left hydronephrosis. There is stable mild dilatation of the right renal pelvis. A small right renal cyst is seen. No stones are visible in either kidney. The prevoid bladder volume measured 769 cc. There is a 43 cc postvoid residual. Both the ureteral jets were visualized. IMPRESSION: Stable left hydronephrosis.
== END 2018-03-11 01:52 ==
PROVIDERS: PCP Family Medicine; Visit Provider Nurse Practitioner Gerontology
DX: N13.30 Unspecified hydronephrosis (principal); N28.1 Cyst of kidney, acquired
CPT/HCPCS: 76770

== ENCOUNTER 2018-03-19 01:11 | Outpatient (CLI) | payer MEDICARE, MEDICAID, SELFPAY ==
--- NOTE | 2018-03-19 08:18 | DI.CT_ITS ---
SYMPTOMS/DIAGNOSIS: HYDRONEPHROSIS LT, N13.30, ? STONE FRAGMENT FROM RECENT SX CAUSING HYDRO CT SCAN OF THE ABDOMEN AND PELVIS: Routine examination was performed. Comparison 10/05/17. Noncontrast CT scan of the abdomen and pelvis was performed. There is no evidence of nephrolithiasis or ureterolithiasis. There are again seen several phleboliths in the pelvis. The urinary bladder is intact. The patient is status post cholecystectomy. No evidence of an acute appendicitis is present. Following contrast administration, CT scan of the abdomen and pelvis was performed. The visualized lung bases are clear. The liver is normal in size. No suspicious hepatic mass is seen. The portal, superior mesenteric and splenic veins are patent. No biliary ductal dilatation is seen. The pancreas, spleen and adrenal glands are unremarkable. The kidneys show normal and symmetric enhancement. No evidence of a solid renal mass is present. There is a cyst seen in the right kidney. The urinary bladder is intact. The reproductive organs are grossly unremarkable as visualized. The abdominal aorta is of normal caliber with minimal atherosclerosis. No significant abdominal or pelvic adenopathy, ascites or pneumoperitoneum is present. Mild degenerative changes are seen in the spine. The 7 mm delayed images of the renal collecting system show no filling defects or obstruction. The urinary bladder is intact without filling defect. IMPRESSION: 1. No evidence of nephrolithiasis or hydronephrosis. 2. No evidence of a renal mass.
[2018-03-19 08:56] LABS: CREATININE 0.89 mg/dL (0.55-1.02)
[2018-03-19] MEDS: Omnipaque 350 MG/ML 100 ML BTL IJ (10:01)
== END 2018-03-19 01:31 ==
PROVIDERS: PCP Family Medicine; Visit Provider Nurse Practitioner Gerontology
DX: N13.30 Unspecified hydronephrosis (principal); N28.1 Cyst of kidney, acquired; N20.0 Calculus of kidney
CPT/HCPCS: 36415; 74178; 82565; J3490

== ENCOUNTER 2018-04-18 14:54 | Outpatient (CLI) | payer MEDICARE, MEDICAID, SELFPAY ==
[2018-04-18 15:36] LABS: Abs Immature Grans 0.02 k/cumm (0.0-0.09); Absolute Basophil Count 0.02 k/cumm (0.0-0.2); Absolute Lymphocyte Count 2.36 k/cumm (1.2-3.4); Absolute Monocyte Count 0.33 k/cumm (0.11-0.7); Absolute Neutrophil Count 6.19 k/cumm (1.2-6.7); Basophils % 0.2; Eosinophils % 1.1; HCT 40.6 % (36.0-46.0); HGB 13.8 g/dL (12.0-15.5); Immature Grans % 0.2; Lymphocytes % 26.2; Mean Corpuscular Hemoglobin 31.6 pg (27.0-33.0); Mean Corpuscular Volume 92.9 fL (80-95); Mean Platelet Volume 10.9 fL (8.0-11.0); Monocytes % 3.7; Neutrophils % 68.6; Platelet Count 254 x1000/uL (130-400); RBC 4.37 m/cumm (4.00-5.20); RBC Distribution Width 12.8 % (11.7-14.6); White Blood Cell Count 9.02 k/cumm (4.4-10.8)
[2018-04-18 16:55] LABS: Lithium 0.93 mmol/L (0.60-1.20)
[2018-04-18 17:07] LABS: ALT 20 U/L (12-78); AST 12 U/L (15-37); Albumin 3.9 g/dL (3.4-5.0); Alkaline Phosphatase 88 U/L (46-116); Anion Gap 9.4 mmol/L (3-11); BUN 11 mg/dL (7-18); Bilirubin, Total 0.5 mg/dL (0.2-1.0); CO2 26.6 mmol/L (21.0-32.0); CREATININE 0.87 mg/dL (0.55-1.02); Calcium 10.1 mg/dL (8.5-10.1); Chloride 108 mmol/L (98-107); Glucose 75 mg/dL (70-100); Potassium 3.8 mmol/L (3.5-5.1); Sodium 144 mmol/L (136-145); Total Protein 7.8 g/dL (6.4-8.2)
[2018-04-18 17:09] LABS: TSH (W/Ref FT4) 0.16 uIU/mL (0.358-3.74)
[2018-04-18 17:24] LABS: Vitamin D 25 Total 13.9 ng/ml (30-100)
[2018-04-18 18:03] LABS: FREE T4 1.34 ng/dL (0.76-1.46)
[2018-04-19 15:59] LABS: Ionized Calcium 1.29 mmol/L (1.12-1.32)
[2018-04-22 11:45] LABS: Hepatitis B Surface Ag Negative (NEGAT)
== END 2018-04-18 15:14 ==
PROVIDERS: Nurse Practitioner Psychiatric/Mental Health; PCP Family Medicine; Visit Provider Family Medicine
DX: F31.9 Bipolar disorder, unspecified (principal); Z51.81 Encounter for therapeutic drug level monitoring; Z79.899 Other long term (current) drug therapy; E83.52 Hypercalcemia; N20.0 Calculus of kidney; Z11.59 Encounter for screening for other viral diseases
CPT/HCPCS: 36415; 80053; 82306; 87340; 80178; 82330; 84439; 84443; 85025

== ENCOUNTER 2018-07-23 14:39 | Emergency (ER) | payer MEDICARE, MEDICAID, SELFPAY ==
[2018-07-23 14:48] VITALS: BP 119/84; PULSE 72; RESP 16; TEMP 37.1; O2SAT 96
[2018-07-23 15:00] VITALS: RESP 16
--- NOTE | 2018-07-23 15:09 | DI.CT_ITS ---
CT BRAIN: DIFFICULTY SPEAKING AND SHAKINESS Noncontrast examination. No priors. The ventricles and sulci are consistent with the patient's age. No evidence of an acute infarct, intracranial hemorrhage, midline shift or mass effect is identified. The ventricles are intact. The basilar cisterns are patent. The calvarium is intact. The visualized paranasal sinuses are clear. No fluid levels are seen. The mastoid air cells are well pneumatized. IMPRESSION: No acute intracranial process. The findings were discussed with Dr. Haskins of the Emergency Department on the date of the examination.
--- NOTE | 2018-07-23 15:11 | W.ED.GENAD ---
Discharge Plan Disposition Patient Disposition: HOME Condition: Good Discharge Details Chief Complaint: GenMedical Clinical Impression: Tremor, Creatinine elevation Primary Care Provider: Jordan Reyes ED Provider: Turner Haskins Home Meds and New Rx's Prescriptions: No Action tramadol 50 mg tablet 50 mg PO Q6H PRN (Reason: pain) Qty: 10 RF: 0 omeprazole 20 MG capsule,delayed release(DR/EC) 20 mg PO DAILY RF: 0 olanzapine [Zyprexa] 10 MG tablet 20 mg PO HS RF: 0 lorazepam 1 MG tablet 1 mg PO HS PRN PRNRF: 0 lithium carbonate 300 mg Tablet Extended Release 900 mg PO HS RF: 0 lorazepam 1 mg Tablet 1 mg PO HS RF: 0 levothyroxine 125 mcg Capsule 125 mcg PO DAILY RF: 0 Excedrin Migraine 250-250-65 mg Tablet 250 mg PO PRN PRNRF: 0 Discharge Instructions Additional Instructions: Your creatinine was slightly elevated at 1.14. This is concerning with your lithium level. There is no need for emergent dialysis at this time however he does require close monitoring by her family doctor Dr. berman. Please follow-up with him within the week for reassessment. Your CT scan of your head showed no significant abnormality per the radiologist. If you notice any worsening of your symptoms, or any new symptoms such as vomiting, diarrhea, fever, chills, shortness of breath, chest pain, numbness, weakness, or fainting , please return immediately to the emergency department for reevaluation. Please follow up with your primary care provider as soon as possible for reassessment and reevaluation. As always, it was a pleasure participating in your medical care today. Referrals: Jordan Reyes [Primary Care Provider] - Medical Decision Making This is a 57-year-old female with a past medical history of bipolar disorder and anxiety who takes lithium who presents today for evaluation of shakiness in which she describes as a speech impediment. She is originally from [place], but does speak fair [place]. She states that over the last year she has had these symptoms and they have been unchanged. She denies any change in her medications. Physical exam demonstrates no significant abnormalities. Neurologic exam is normal, no wide-based gait or ataxia. Tremor appears to be quite minimal, and she shows no signs of significant speech impediment. We will get a CT scan of the head to rule out acute intracranial process, evaluate for electrolyte abnormality and lithium toxicity. I feel his symptoms are most likely chronic in nature and part of her normal mental status, not necessarily secondary to a toxic level of lithium.. 4:29 PM Laboratory work-up has returned, lithium levels are at therapeutic level, no white count, normal CBC, electrolytes are all benign. Potassium is minimally low at 3.4. Creatinine is slightly elevated at 1.14, this is higher than baseline. No signs of hyperuricemia though. TSH is normal. The remainder of her work-up is otherwise benign. At this time I feel that the patient can be discharged home. CT scan is negative per . With no focal neurologic deficits, no evidence of severe Parkinson's, dementia, paranoia, schizophrenia, or other abnormalities, do not think that any further current work-up is indicated on an emergent basis. We will recommend close follow-up with Dr. berman within the week for further evaluation of her decreasing renal function. We discussed the importance of hydration with 10 to 12 cups of water per day this. This was also all discussed with the labor relations supervisor who is at bedside. I have extensively reviewed the treatment plan with the patient. I have addressed all patient concerns at this time. I have also discussed the plan with the admitting physician and they agree with the current assessment and plan and have agreed to assume responsibility for the patient. All parties demonstrate verbal understanding and agreement with our assessment and plan at this time. Exam(s) a CT:CT head wo CT BRAIN: DIFFICULTY SPEAKING AND SHAKINESS Noncontrast examination. No priors. The ventricles and sulci are consistent with the patient's age. No evidence of an acute infarct, intracranial hemorrhage, midline shift or mass effect is identified. The ventricles are intact. The basilar cisterns are patent. The calvarium is intact. The visualized paranasal sinuses are clear. No fluid levels are seen. The mastoid air cells are well pneumatized. IMPRESSION: No acute intracranial process. The findings were discussed with Dr. Haskins of the Emergency Department on the date of the examination. [id number]: Total DLP = 0.00 mGy-cm Ordered By: Turner Haskins DO HPI General Date/Time Provider Initiated Documentation: 07/23/18 14:47. HPI Narrative: This is a 57-year-old female with a past medical history of bipolar disorder and anxiety who presents today for evaluation of tremor and which she describes as a slight speech impediment. She states that for the past 5 to 6 months up to a year she has had mild shakiness and slight difficulty with her speech. She states that these have been consistent over the last 6 months to a year, and someone recommended that she get her lithium level checked for further evaluation. She does see Dr. berman, but has not brought the symptoms up with him. She denies any other complaints of chest pain, shortness of breath, headache, neck pain, fall, fever, chills, numbness, tingling, weakness, vomiting, diarrhea. No other complaints at this time. No other modifying factors. Related Data Home Medications Medication Instructions Recorded Confirmed omeprazole 20 mg PO DAILY 11/18/14 07/23/18 olanzapine [Zyprexa] 20 mg PO HS 12/08/14 07/23/18 lorazepam 1 mg PO HS PRN PRN 12/27/14 07/23/18 levothyroxine 125 mcg PO DAILY 11/01/17 07/23/18 lithium carbonate 900 mg PO HS 11/01/17 07/23/18 lorazepam 1 mg PO HS 11/01/17 07/23/18 [id number]-ooyhapbowcjzt-zcycmune 250 mg PO PRN PRN 11/05/17 07/23/18 [Excedrin Migraine] tramadol 50 mg tablet 50 mg PO Q6H PRN #10 tab 11/13/17 07/23/18 Previous Rx's Medication Instructions Recorded tramadol 50 mg tablet 50 mg PO Q6H PRN #10 tab 11/13/17 Allergies Allergy/AdvReac Type Severity Reaction Status Date / Time codeine [Codeine] Allergy Severe Anaphylaxsi Unverified 07/23/18 14:51 s glueten Allergy Intermediate Gi upset Uncoded 07/23/18 14:51 lactose intol Allergy Mild Gi upset Uncoded 07/23/18 14:51 msg AdvReac Mild GI Upset Uncoded 07/23/18 14:51 General Stated Complaint: GenMedical SANDRA: 3 Review of Systems Review of Systems All systems reviewed & are unremarkable except as noted in HPI and below PFSH Medical History Calculus of left kidney (Resolved) Bipolar 1 disorder (Chronic) Colon polyp (Chronic) GERD (gastroesophageal reflux disease) (Chronic) Hx of hysterectomy (Chronic) Hyperlipidemia (Chronic) Hypothyroid (Chronic) Surgical History History of section (Chronic) History of cholecystectomy (Chronic) History of colon resection (Chronic) History of hernia repair (Chronic) History of tonsillectomy (Chronic) History of tubal ligation (Chronic) Social History Smoking/Tobacco Use Status: Former Tobacco Use Drug use: Never Do you feel safe in your relationship?: Yes Exam Narrative Exam Narrative: 1.Const: Well-nourished, Well-developed, appearing stated age 2.Eyes: PERRL, no conjunctival injection, and symmetrical lids. 3.ENT: Atraumatic external nose and ears. Moist MM. Neck: Symmetric, trachea midline, No thyromegaly. 4.CVS: +S1/S2, No murmurs or gallops. Peripheral pulses 2+ and equal in all extremities. Brisk capillary refill in all extremities. 5.RESP: Unlabored respiratory effort. Clear to auscultation bilaterally. No wheezes rales or rhonchi 6.GI: Soft, Nontender/Nondistended, No hepatosplenomegaly. No guarding or rebound. 7.MSK: Normocephalic/Atraumatic, Extremities w/o deformity or ttp No cyanosis or clubbing, Normal movement of all extremities 8.Skin: Warm, Dry. No rashes or lesions. 9.Neuro: information technology account manager II-XII grossly intact. Sensation grossly intact, no focal neurologic deficits. All 6 cardinal planes of vision are fully intact. No evidence of rotatory or vertical nystagmus. The patient demonstrated a normal aoonbj-gttc-tlgxck, good dexterity. There was no evidence of dysdiadochokinesia. Patient was able to ambulate without difficulty. There was no wide-based gait. Romberg, and tvmy-vd-cyek are both normal on testing. Sensation was intact bilaterally as well as muscle strength bilaterally for all extremities. Patient was able to verbalize butter cup with no slurring, or miss pronunciation. Cerebellar function testing is normal. The patient demonstrates a normal hints exam with no findings concerning for a central event. No vertical nystagmus. The head impulse test is negative for any significant central abnormality. Normal test of skew. No suggestion of a central cerebellar event. 10.Psych: (AAO) x3. Appropriate mood and affect Course Vital Signs Temperature 37.1 C 07/23/18 14:48 Pulse 72 07/23/18 14:48 Respiratory Rate 16 07/23/18 14:48 Blood Pressure 119/84 07/23/18 14:48 Pulse Oximetry 96 07/23/18 14:48 Temperature 37.1 C 07/23/18 14:48 Temperature Source Skin 07/23/18 14:48 Pulse 72 07/23/18 14:48 Respiratory Rate 16 07/23/18 15:00 Respiratory Effort Non-Labored 07/23/18 15:00 Respiratory Depth Normal 07/23/18 15:00 Respiratory Pattern Normal 07/23/18 15:00 Blood Pressure 119/84 07/23/18 14:48 Blood Pressure Position Sitting 07/23/18 14:48 Pulse Oximetry 96 07/23/18 14:48 Oxygen Delivery Method Room Air 07/23/18 14:48 Oxygen Flow Rate 0 07/23/18 14:48 Pain Level 0 07/23/18 14:48
--- NOTE | 2018-07-23 15:21 | ED.GENADUL_ITS ---
Discharge Plan Disposition Patient Disposition: HOME Condition: Good Discharge Details Chief Complaint: GenMedical Clinical Impression: Tremor, Creatinine elevation Primary Care Provider: Jordan Reyes ED Provider: Turner Haskins Home Meds and New Rx's Prescriptions: No Action tramadol 50 mg tablet 50 mg PO Q6H PRN (Reason: pain) Qty: 10 RF: 0 omeprazole 20 MG capsule,delayed release(DR/EC) 20 mg PO DAILY RF: 0 olanzapine [Zyprexa] 10 MG tablet 20 mg PO HS RF: 0 lorazepam 1 MG tablet 1 mg PO HS PRN PRNRF: 0 lithium carbonate 300 mg Tablet Extended Release 900 mg PO HS RF: 0 lorazepam 1 mg Tablet 1 mg PO HS RF: 0 levothyroxine 125 mcg Capsule 125 mcg PO DAILY RF: 0 Excedrin Migraine 250-250-65 mg Tablet 250 mg PO PRN PRNRF: 0 Discharge Instructions Additional Instructions: Your creatinine was slightly elevated at 1.14. This is concerning with your lithium level. There is no need for emergent dialysis at this time however he does require close monitoring by her family doctor Dr. berman. Please follow-up with him within the week for reassessment. Your CT scan of your head showed no significant abnormality per the radiologist. If you notice any worsening of your symptoms, or any new symptoms such as vomiting, diarrhea, fever, chills, shortness of breath, chest pain, numbness, weakness, or fainting , please return immediately to the emergency department for reevaluation. Please follow up with your primary care provider as soon as possible for reassessment and reevaluation. As always, it was a pleasure participating in your medical care today. Referrals: Jordan Reyes [Primary Care Provider] - Medical Decision Making This is a 57-year-old female with a past medical history of bipolar disorder and anxiety who takes lithium who presents today for evaluation of shakiness in which she describes as a speech impediment. She is originally from [place], but does speak fair [place]. She states that over the last year she has had these symptoms and they have been unchanged. She denies any change in her medications. Physical exam demonstrates no significant abnormalities. Neurologic exam is normal, no wide-based gait or ataxia. Tremor appears to be quite minimal, and she shows no signs of significant speech impediment. We will get a CT scan of the head to rule out acute intracranial process, evaluate for electrolyte abnormality and lithium toxicity. I feel his symptoms are most likely chronic in nature and part of her normal mental status, not necessarily secondary to a toxic level of lithium.. 4:29 PM Laboratory work-up has returned, lithium levels are at therapeutic level, no white count, normal CBC, electrolytes are all benign. Potassium is minimally low at 3.4. Creatinine is slightly elevated at 1.14, this is higher than baseline. No signs of hyperuricemia though. TSH is normal. The remainder of her work-up is otherwise benign. At this time I feel that the patient can be discharged home. CT scan is negative per . With no focal neurologic deficits, no evidence of severe Parkinson's, dementia, paranoia, schizophrenia, or other abnormalities, do not think that any further current work-up is indicated on an emergent basis. We will recommend close follow-up with Dr. berman within the week for further evaluation of her decreasing renal function. We discussed the importance of hydration with 10 to 12 cups of water per day this. This was also all discussed with the credit risk analytics manager who is at bedside. I have extensively reviewed the treatment plan with the patient. I have addressed all patient concerns at this time. I have also discussed the plan with the admitting physician and they agree with the current assessment and plan and have agreed to assume responsibility for the patient. All parties demonstrate verbal understanding and agreement with our assessment and plan at this time. Exam(s) a CT:CT head wo CT BRAIN: DIFFICULTY SPEAKING AND SHAKINESS Noncontrast examination. No priors. The ventricles and sulci are consistent with the patient's age. No evidence of an acute infarct, intracranial hemorrhage, midline shift or mass effect is identified. The ventricles are intact. The basilar cisterns are patent. The calvarium is intact. The visualized paranasal sinuses are clear. No fluid levels are seen. The mastoid air cells are well pneumatized. IMPRESSION: No acute intracranial process. The findings were discussed with Dr. Haskins of the Emergency Department on the date of the examination. [id number]: Total DLP = 0.00 mGy-cm Ordered By: Turner Haskins DO HPI General Date/Time Provider Initiated Documentation: 07/23/18 14:47 . HPI Narrative: This is a 57-year-old female with a past medical history of bipolar disorder and anxiety who presents today for evaluation of tremor and which she describes as a slight speech impediment. She states that for the past 5 to 6 months up to a year she has had mild shakiness and slight difficulty with her speech. She states that these have been consistent over the last 6 months to a year, and someone recommended that she get her lithium level checked for further evaluation. She does see Dr. berman, but has not brought the symptoms up with him. She denies any other complaints of chest pain, shortness of breath, headache, neck pain, fall, fever, chills, numbness, tingling, weakness, vomiting, diarrhea. No other complaints at this time. No other modifying factors. Related Data Home Medications Medication Instructions Recorded Confirmed omeprazole 20 mg PO DAILY 11/18/14 07/23/18 olanzapine [Zyprexa] 20 mg PO HS 12/08/14 07/23/18 lorazepam 1 mg PO HS PRN PRN 12/27/14 07/23/18 levothyroxine 125 mcg PO DAILY 11/01/17 07/23/18 lithium carbonate 900 mg PO HS 11/01/17 07/23/18 lorazepam 1 mg PO HS 11/01/17 07/23/18 [id number]-lqnmgrwqpzgsl-ocjpcyjw 250 mg PO PRN PRN 11/05/17 07/23/18 [Excedrin Migraine] tramadol 50 mg tablet 50 mg PO Q6H PRN #10 tab 11/13/17 07/23/18 Previous Rx's Medication Instructions Recorded tramadol 50 mg tablet 50 mg PO Q6H PRN #10 tab 11/13/17 Allergies Allergy/AdvReac Type Severity Reaction Status Date / Time codeine [Codeine] Allergy Severe Anaphylaxsi Unverified 07/23/18 14:51 s glueten Allergy Intermediate Gi upset Uncoded 07/23/18 14:51 lactose intol Allergy Mild Gi upset Uncoded 07/23/18 14:51 msg AdvReac Mild GI Upset Uncoded 07/23/18 14:51 General Stated Complaint: GenMedical SANDRA: 3 Review of Systems Review of Systems All systems reviewed & are unremarkable except as noted in HPI and below PFSH Medical History Calculus of left kidney (Resolved) Bipolar 1 disorder (Chronic) Colon polyp (Chronic) GERD (gastroesophageal reflux disease) (Chronic) Hx of hysterectomy (Chronic) Hyperlipidemia (Chronic) Hypothyroid (Chronic) Surgical History History of section (Chronic) History of cholecystectomy (Chronic) History of colon resection (Chronic) History of hernia repair (Chronic) History of tonsillectomy (Chronic) History of tubal ligation (Chronic) Social History Smoking/Tobacco Use Status: Former Tobacco Use Drug use: Never Do you feel safe in your relationship?: Yes Exam Narrative Exam Narrative: 1.Const: Well-nourished, Well-developed, appearing stated age 2.Eyes: PERRL, no conjunctival injection, and symmetrical lids. 3.ENT: Atraumatic external nose and ears. Moist MM. Neck: Symmetric, trachea midline, No thyromegaly. 4.CVS: +S1/S2, No murmurs or gallops. Peripheral pulses 2+ and equal in all extremities. Brisk capillary refill in all extremities. 5.RESP: Unlabored respiratory effort. Clear to auscultation bilaterally. No wheezes rales or rhonchi 6.GI: Soft, Nontender/Nondistended, No hepatosplenomegaly. No guarding or rebound. 7.MSK: Normocephalic/Atraumatic, Extremities w/o deformity or ttp No cyanosis or clubbing, Normal movement of all extremities 8.Skin: Warm, Dry. No rashes or lesions. 9.Neuro: communications department chair II-XII grossly intact. Sensation grossly intact, no focal neurologic deficits. All 6 cardinal planes of vision are fully intact. No evidence of rotatory or vertical nystagmus. The patient demonstrated a normal simkac-higx-zrhyrc, good dexterity. There was no evidence of dysdiadochokinesia. Patient was able to ambulate without difficulty. There was no wide-based gait. Romberg, and cxes-nz-zfdq are both normal on testing. Sensation was intact bilaterally as well as muscle strength bilaterally for all extremities. Patient was able to verbalize butter cup with no slurring, or miss pronunciation. Cerebellar function testing is normal. The patient demonstrates a normal hints exam with no findings concerning for a central event. No vertical nystagmus. The head impulse test is negative for any significant central abnormality. Normal test of skew. No suggestion of a central cerebellar event. 10.Psych: (AAO) x3. Appropriate mood and affect Course Vital Signs Temperature 37.1 C 07/23/18 14:48 Pulse 72 07/23/18 14:48 Respiratory Rate 16 07/23/18 14:48 Blood Pressure 119/84 07/23/18 14:48 Pulse Oximetry 96 07/23/18 14:48 Temperature 37.1 C 07/23/18 14:48 Temperature Source Skin 07/23/18 14:48 Pulse 72 07/23/18 14:48 Respiratory Rate 16 07/23/18 15:00 Respiratory Effort Non-Labored 07/23/18 15:00 Respiratory Depth Normal 07/23/18 15:00 Respiratory Pattern Normal 07/23/18 15:00 Blood Pressure 119/84 07/23/18 14:48 Blood Pressure Position Sitting 07/23/18 14:48 Pulse Oximetry 96 07/23/18 14:48 Oxygen Delivery Method Room Air 07/23/18 14:48 Oxygen Flow Rate 0 07/23/18 14:48 Pain Level 0 07/23/18 14:48
[2018-07-23 15:29] LABS: Abs Immature Grans 0.01 k/cumm (0.0-0.09); Absolute Basophil Count 0.01 k/cumm (0.0-0.2); Absolute Eosinophil Count 0.06 k/cumm (0.0-0.7); Absolute Lymphocyte Count 1.51 k/cumm (1.2-3.4); Absolute Monocyte Count 0.22 k/cumm (0.11-0.7); Absolute Neutrophil Count 4.88 k/cumm (1.2-6.7); Basophils % 0.1; Eosinophils % 0.9; HCT 40.8 % (36.0-46.0); HGB 13.7 g/dL (12.0-15.5); Immature Grans % 0.1; Lymphocytes % 22.6; Mean Corp. HGB Concentration 33.6 g/dL (32.0-36.0); Mean Corpuscular Hemoglobin 31.1 pg (27.0-33.0); Mean Corpuscular Volume 92.7 fL (80-95); Monocytes % 3.3; Platelet Count 226 x1000/uL (130-400); RBC Distribution Width 12.9 % (11.7-14.6); White Blood Cell Count 6.69 k/cumm (4.4-10.8)
[2018-07-23 15:58] LABS: Lithium 0.84 mmol/L (0.60-1.20)
[2018-07-23 15:59] LABS: ALT 23 U/L (12-78); AST 14 U/L (15-37); Albumin 3.8 g/dL (3.4-5.0); Alkaline Phosphatase 92 U/L (46-116); Anion Gap 11.2 mmol/L (3-11); BUN 11 mg/dL (7-18); Bilirubin, Total 0.4 mg/dL (0.2-1.0); CO2 23.8 mmol/L (21.0-32.0); CREATININE 1.14 mg/dL (0.55-1.02); Calcium 9.9 mg/dL (8.5-10.1); Chloride 106 mmol/L (98-107); Estimated GFR 48.79 (mL/min/1.73m2); Glucose 151 mg/dL (70-100); Potassium 3.4 mmol/L (3.5-5.1); Sodium 141 mmol/L (136-145); Total Protein 7.7 g/dL (6.4-8.2)
== END 2018-07-23 16:39 | disposition home or self-care (01) ==
PROVIDERS: Emergency Provider Student in an Organized Health Care Education/Training Program; PCP Family Medicine
DX: R25.1 Tremor, unspecified (principal); R94.4 Abnormal results of kidney function studies; E87.6 Hypokalemia; F31.9 Bipolar disorder, unspecified
CPT/HCPCS: 36415; 80053; 99284; 70450; 80178; 84443; 85025; 99285

== ENCOUNTER 2018-08-01 13:31 | Outpatient (REF) | payer MEDICARE, MEDICAID, SELFPAY ==
[2018-08-01 18:37] LABS: Lithium 0.99 mmol/L (0.60-1.20)
[2018-08-01 18:41] LABS: Anion Gap 8.9 mmol/L (3-11); BUN 13 mg/dL (7-18); CO2 26.1 mmol/L (21.0-32.0); CREATININE 0.91 mg/dL (0.55-1.02); Calcium 10.2 mg/dL (8.5-10.1); Chloride 108 mmol/L (98-107); Glucose 89 mg/dL (70-100); Potassium 4.7 mmol/L (3.5-5.1); Sodium 143 mmol/L (136-145)
== END 2018-08-01 13:51 ==
LOC: NCHCN 13:31
PROVIDERS: PCP Family Medicine; Visit Provider Family Medicine
DX: F31.2 Bipolar disorder, current episode manic severe with psychotic features (principal); Z79.899 Other long term (current) drug therapy; Z51.81 Encounter for therapeutic drug level monitoring
CPT/HCPCS: 80048; 80178

== ENCOUNTER 2018-08-14 00:29 | Outpatient (CLI) | payer MEDICARE, MEDICAID, SELFPAY ==
--- NOTE | 2018-08-14 11:23 | DI.MRI_ITS ---
SYMPTOMS/DIAGNOSIS: SPEECH DISTURBANCE, R47.9, MONTHS OF SPEECH CHANGE-TROUBLE FINDING WORDS, SOME CHANGE IN PRONUNCIATION, SLIGHTLY GARBLED BRAIN MRI: T2 sagittal, T2 axial, diffusion axial, T2 axial HEMO, T1 axial and T2 axial FLAIR BLADE pulse sequences were performed. There are a number of small areas of increased signal in the frontoparietal white matter bilaterally. These findings are nonspecific but could well represent small vessel disease. The possibility of a demyelinating process could not be excluded. The ventricles are intact. The normal flow void is demonstrated in the cerebral vessels. SUMMARY: A number of small regions of increased signal in the frontoparietal white matter bilaterally likely represent small vessel disease; however, the possibility of a demyelinating process could not be excluded.
--- NOTE | 2018-08-14 12:40 | MERGE_ITS ---
*[facility]* *[facility]* [address] [place] [address] Date of study: 08/14/2018 Transthoracic Echocardiography M-mode, complete 2D, complete spectral Doppler, and color Doppler *STUDY CONCLUSIONS* Summary: 1. Left ventricle: The cavity size was normal. Wall thickness was normal. Systolic function was normal. The estimated ejection fraction was 60-65%. Wall motion was normal; there were no regional wall motion abnormalities. 2. Aortic valve: Trileaflet; mildly thickened leaflets. Valve mobility was restricted. There was mild stenosis. There was moderate regurgitation. Peak velocity (S): 2.5m/sec. Mean gradient (S): 13.1mm Hg. Valve area (VTI): 1.6cm^2. 3. Mitral valve: There was mild regurgitation. 4. Right ventricle: The cavity size was normal. Wall thickness was normal. Systolic function was normal. 5. Pulmonary arteries: Pulmonary systolic pressure was increased, in the range of 35mm Hg to 40mm Hg. *PATIENT PRESENTATION* Height: 160cm ((63in) ) S/D Pressure: 119 / 73 Weight: 65.8kg ((144.7lb) ) BSA: 1.72m^2 Test start time: 12:45 PM. Test stop time: 01:40 PM. 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 This study was interpreted by [facility]. Pertinent images and digital data are archived for permanent storage and are available for subsequent review. No prior study was available for comparison. Study status: Routine. Transthoracic echocardiography. M-mode, complete 2D, complete spectral Doppler, and color Doppler. A Transthoracic Echocardiogram was performed. Scanning was performed from the parasternal, apical, subcostal, and suprasternal notch acoustic windows. Images were obtained using an [id number] cardiac ultrasound machine. Image quality was adequate. Study completion: The patient tolerated the procedure well. There were no complications. History: PMH: Systolic heart mumur r01.1 speech disturbance r47.9. *CARDIAC ANATOMY* Left ventricle: The cavity size was normal. Wall thickness was normal. Systolic function was normal. The estimated ejection fraction was 60-65%. Wall motion was normal; there were no regional wall motion abnormalities. Diastolic parameters were normal for age. Aortic valve: Trileaflet; mildly thickened leaflets. Valve mobility was restricted. Doppler: There was mild stenosis. There was moderate regurgitation. VTI ratio of LVOT to aortic valve: 0.56. Valve area (VTI): 1.6cm^2. Indexed valve area (VTI): 0.9cm^2/m^2. Peak velocity ratio of LVOT to aortic valve: 0.59. Valve area (Vmax): 1.7cm^2. Indexed valve area (Vmax): 1cm^2/m^2. Mean velocity ratio of LVOT to aortic valve: 0.68. Valve area (Vmean): 1.9cm^2. Indexed valve area (Vmean): 1.1cm^2/m^2. Mean gradient (S): 13.1mm Hg. Peak gradient (S): 24.4mm Hg. Aorta: Aortic root: The aortic root was normal in size. Ascending aorta: The ascending aorta was normal in size. Mitral valve: Structurally normal valve. Mobility was not restricted. Doppler: Transvalvular velocity was within the normal range. There was no evidence for stenosis. There was mild regurgitation. Valve area by pressure half-time: 4.1cm^2. Indexed valve area by pressure half-time: 2.4cm^2/m^2. Peak gradient (D): 4.1mm Hg. Left atrium: The atrium was normal in size. Right ventricle: The cavity size was normal. Wall thickness was normal. Systolic function was normal. Pulmonic valve: Structurally normal valve. Doppler: Transvalvular velocity was within the normal range. There was no evidence for stenosis. There was trivial regurgitation. Peak gradient (S): 6.1mm Hg. Tricuspid valve: Structurally normal valve. Doppler: Transvalvular velocity was within the normal range. There was no evidence for stenosis. There was mild regurgitation. Pulmonary artery: Pulmonary systolic pressure was increased, in the range of 35mm Hg to 40mm Hg. Right atrium: The atrium was normal in size. Pericardium: There was no pericardial effusion. Systemic veins: Inferior vena cava: Well visualized. The vessel was patent and normal in size. The respirophasic diameter changes were in the normal range (greater than or equal to 50%). Baseline ECG: Bradycardia. Measurements Left ventricle Value Reference LV ID, ED, PLAX 4.2 cm 3.5 - 6.0 LV ID, ES, PLAX 2.8 cm 2.1 - 4.0 LV PW thickness, ED, PLAX 0.9 cm LV end-diastolic volume, 1-p A2C 94 ml LV ejection fraction, 1-p A2C 60 % LV end-diastolic volume, 1-p A4C 105 ml LV ejection fraction, 1-p A4C 59 % LV e', lateral 0.103 m/sec LV E/e', lateral 10 LV e', medial 0.094 m/sec LV E/e', medial 11 LV e', average 0.099 m/sec LV E/e', average 10 Ventricular septum Value Reference IVS thickness, ED, PLAX 1.1 cm LVOT Value Reference LVOT ID, S 1.9 cm LVOT ID, A-P 1.9 cm LVOT area 2.8 cm^2 LVOT peak velocity, S 1.45 m/sec LVOT mean velocity, S 1.16 m/sec LVOT VTI, S 30.7 cm LVOT peak gradient, S 8.5 mm Hg LVOT mean gradient, S 5.7 mm Hg Stroke volume (SV), LVOT DP 72 ml Stroke index (SV/bsa), LVOT DP 42 ml/m^2 Aortic valve Value Reference Aortic valve peak velocity, S 2.5 m/sec Aortic valve mean velocity, S 1.7 m/sec Aortic valve VTI, S 55.0 cm Aortic mean gradient, S 13.1 mm Hg Aortic peak gradient, S 24.4 mm Hg VTI ratio, LVOT/AV 0.56 Aortic valve area, VTI 1.6 cm^2 Velocity ratio, peak, LVOT/AV 0.59 Aortic valve area, peak velocity 1.7 cm^2 Velocity ratio, mean, LVOT/AV 0.68 Aortic valve area, mean velocity 1.9 cm^2 Aortic valve area/bsa, mean velocity 1.1 cm^2/m^2 Aorta Value Reference Aortic root ID, ED 2.8 cm Ascending aorta ID, A-P, S 3.5 cm RVOT Value Reference RVOT VTI, S 17.4 cm Left atrium Value Reference LA ID, A-P, ES 3.1 cm LA ID/bsa, A-P 1.8 cm/m^2 <=2.2 LA area, ES, A4C 15.1 cm^2 8.8 - 23.4 LA area, ES, A2C 16 cm^2 LA volume/bsa, ES, 1-p A4C 27 ml/m^2 LA volume, ES, 2-p 45 ml LA volume/bsa, ES, 2-p 26 ml/m^2 LA/aortic root ratio 1.09 Mitral valve Value Reference Mitral E-wave peak velocity 1.01 m/sec Mitral A-wave peak velocity 1.09 m/sec Mitral deceleration time 184 ms 150 - 230 Mitral pressure half-time 53 ms Mitral peak gradient, D 4.1 mm Hg Mitral E/A ratio, peak 0.93 Mitral valve area, PHT, DP 4.1 cm^2 Pulmonary veins Value Reference Pulmonary vein peak velocity, S 0.72 m/sec Pulmonary vein peak velocity, D 0.47 m/sec Pulmonary vein velocity ratio, peak, 1.51 S/D Pulmonary vein A-wave reversal peak 0.36 m/sec velocity Pulmonary vein A-wave reversal 177 ms duration Tricuspid valve Value Reference Tricuspid regurg peak velocity 2.9 m/sec Tricuspid peak RV-RA gradient 34.4 mm Hg Right atrium Value Reference RA area, ES, A4C 12.7 cm^2 8.3 - 19.5 Pulmonic valve Value Reference Pulmonic peak gradient, S 6.1 mm Hg Legend: (L) and (H) molly values outside specified reference range. I have personally reviewed the images and have reviewed and edited the reported findings. Electronically signed by Rich Vale 08/14/2018 14:23
== END 2018-08-14 00:49 ==
PROVIDERS: PCP Family Medicine; Visit Provider Family Medicine
DX: R01.1 Cardiac murmur, unspecified (principal); I08.0 Rheumatic disorders of both mitral and aortic valves; R47.9 Unspecified speech disturbances; R90.82 White matter disease, unspecified
CPT/HCPCS: 93306; 70551

== ENCOUNTER 2018-08-16 15:22 | Outpatient (REF) | payer MEDICARE, MEDICAID, SELFPAY ==
[2018-08-16 20:09] LABS: Vitamin B12 357 pg/mL (193-986)
[2018-08-16 20:35] LABS: ESR 5 MM/HR (0-30)
[2018-08-19 10:52] LABS: HIV-1/2 Ag & Ab Screen Negative (NEGAT)
[2018-08-19 12:00] LABS: Syphilis Serology (RPR) Negative (Negative)
== END 2018-08-16 15:42 ==
LOC: NCHCN 15:22
PROVIDERS: PCP Family Medicine; Visit Provider Family Medicine
DX: R41.3 Other amnesia (principal); Z11.4 Encounter for screening for human immunodeficiency virus [HIV]
CPT/HCPCS: 85652; 87389; 82607; 86592

== ENCOUNTER 2018-10-01 00:23 | Outpatient (CLI) | payer MEDICARE, MEDICAID, SELFPAY ==
--- NOTE | 2018-10-01 11:47 | DI.US_ITS ---
SYMPTOMS/DIAGNOSIS: ABDOMINAL WALL PAIN, R10.9, ? HERNIA ULTRASOUND OF THE LEFT GROIN: No hernia, cyst, mass or adenopathy is demonstrated. IMPRESSION: Negative ultrasound of the left groin.
== END 2018-10-01 00:43 ==
PROVIDERS: PCP Family Medicine; Visit Provider Family Medicine
DX: R10.32 Left lower quadrant pain (principal)
CPT/HCPCS: 76857

== ENCOUNTER → 2018-10-23 12:20 | Outpatient (BNVA) | payer MEDICARE, MEDICAID, SELFPAY | PROVIDERS: PCP Family Medicine; Referring Provider Family Medicine; Visit Provider Psychiatry & Neurology Neurology | DX: G21.11 Neuroleptic induced parkinsonism (principal); R47.9 Unspecified speech disturbances; R26.89 Other abnormalities of gait and mobility | CPT/HCPCS: 99205; 99215 ==

== ENCOUNTER 2018-11-28 13:04 | Outpatient (CLI) | payer MEDICARE, MEDICAID, SELFPAY ==
[2018-11-28 14:32] LABS: Lithium 0.96 mmol/L (0.60-1.20)
== END 2018-11-28 13:24 ==
PROVIDERS: PCP Family Medicine; Visit Provider Nurse Practitioner Psychiatric/Mental Health
DX: F31.9 Bipolar disorder, unspecified (principal); Z51.81 Encounter for therapeutic drug level monitoring
CPT/HCPCS: 36415; 80178

== ENCOUNTER → 2018-12-18 14:01 | Outpatient (BNVA) | payer MEDICARE, MEDICAID, SELFPAY | PROVIDERS: PCP Family Medicine; Referring Provider Family Medicine; Visit Provider Psychiatry & Neurology Neurology | DX: G21.11 Neuroleptic induced parkinsonism (principal) | CPT/HCPCS: 99214 ==

== ENCOUNTER 2019-05-09 11:33 | Outpatient (CLI) | payer MEDICARE, MEDICAID, SELFPAY ==
[2019-05-09 12:11] LABS: Abs Immature Grans 0.01 k/cumm (0.0-0.09); Absolute Basophil Count 0.02 k/cumm (0.0-0.2); Absolute Eosinophil Count 0.08 k/cumm (0.0-0.7); Absolute Lymphocyte Count 1.61 k/cumm (1.2-3.4); Absolute Monocyte Count 0.23 k/cumm (0.11-0.7); Absolute Neutrophil Count 4.35 k/cumm (1.2-6.7); Basophils % 0.3; Eosinophils % 1.3; HCT 40.3 % (36.0-46.0); HGB 13.3 g/dL (12.0-15.5); Immature Grans % 0.2 %; Lymphocytes % 25.6; Mean Corpuscular Volume 90.8 fL (80-95); Mean Platelet Volume 9.7 fL (8.0-11.0); Monocytes % 3.7; Neutrophils % 68.9; Platelet Count 290 x1000/uL (130-400); RBC 4.44 m/cumm (4.00-5.20)
[2019-05-09 12:49] LABS: Lithium 0.98 mmol/L (0.60-1.20)
[2019-05-09 12:59] LABS: Calculated LDL 123 mg/dL (<100); Cholesterol 185 mg/dL (<200); HDL Cholesterol 42 mg/dL (40-60); Triglyceride 102 mg/dL (<150)
[2019-05-09 13:07] LABS: ALT 23 U/L (14-59); AST 17 U/L (15-37); Albumin 3.9 g/dL (3.4-5.0); Alkaline Phosphatase 81 U/L (46-116); Anion Gap 8.4 mmol/L (3-11); BUN 12 mg/dL (7-18); Bilirubin, Total 0.4 mg/dL (0.2-1.0); CO2 26.6 mmol/L (21.0-32.0); CREATININE 0.97 mg/dL (0.55-1.02); Chloride 106 mmol/L (98-107); Estimated GFR 58.58 (mL/min/1.73m2); Glucose 103 mg/dL (74-106); Sodium 141 mmol/L (136-145); TSH (W/Ref FT4) 1.52 uIU/mL (0.36-3.74); Total Protein 7.5 g/dL (6.4-8.2)
[2019-05-12 12:24] LABS: Parathyroid Hormone,Intact 131 pg/mL (19-88)
== END 2019-05-09 11:53 ==
PROVIDERS: PCP Family Medicine; Visit Provider Nurse Practitioner Psychiatric/Mental Health
DX: F31.9 Bipolar disorder, unspecified (principal); Z51.81 Encounter for therapeutic drug level monitoring; E78.5 Hyperlipidemia, unspecified; E83.52 Hypercalcemia; E03.9 Hypothyroidism, unspecified; E55.9 Vitamin D deficiency, unspecified
CPT/HCPCS: 36415; 80053; 80061; 82306; 80178; 83970; 84439; 84443; 85025

== ENCOUNTER → 2019-06-18 07:49 | Outpatient (BNVA) | payer MEDICARE, MEDICAID, SELFPAY | PROVIDERS: PCP Family Medicine; Referring Provider Family Medicine; Visit Provider Psychiatry & Neurology Neurology | DX: R69 Illness, unspecified (principal) ==

== ENCOUNTER → 2019-06-18 15:52 | Outpatient (BNVA) | payer MEDICARE, MEDICAID, SELFPAY | PROVIDERS: PCP Family Medicine; Referring Provider Family Medicine; Visit Provider Psychiatry & Neurology Neurology | DX: G21.11 Neuroleptic induced parkinsonism (principal) | CPT/HCPCS: 99213; 99441 ==

== ENCOUNTER 2019-08-19 12:29 | Outpatient (REF) | payer MEDICARE, MEDICAID, SELFPAY ==
[2019-08-19 16:15] LABS: Albumin 3.8 g/dL (3.4-5.0); Anion Gap 10.7 mmol/L (3-11); BUN 12 mg/dL (7-18); CO2 24.3 mmol/L (21.0-32.0); CREATININE 1.09 mg/dL (0.55-1.02); Calcium 10.1 mg/dL (8.5-10.1); Chloride 108 mmol/L (98-107); Estimated GFR 51.03 (mL/min/1.73m2); Glucose 112 mg/dL (74-106); Potassium 4.5 mmol/L (3.5-5.1); Sodium 143 mmol/L (136-145)
== END 2019-08-19 12:49 ==
LOC: NCHCN 12:29
PROVIDERS: PCP Family Medicine; Visit Provider Family Medicine
DX: E21.0 Primary hyperparathyroidism (principal)
CPT/HCPCS: 80048; 82040

== ENCOUNTER → 2019-12-17 14:22 | Outpatient (BNVA) | payer MEDICARE, MEDICAID, SELFPAY | PROVIDERS: PCP Family Medicine; Referring Provider Family Medicine; Visit Provider Psychiatry & Neurology Neurology | DX: G21.11 Neuroleptic induced parkinsonism (principal); R41.3 Other amnesia | CPT/HCPCS: 99213 ==

== ENCOUNTER 2020-03-08 11:49 | Observation (INO) | payer MEDICARE, MEDICAID, SELFPAY ==
[2020-03-08] VITALS (29 sets, daily range): BP systolic 97–144; BP diastolic 64–101; PULSE 62–126; RESP 11–26; TEMP 37.3–37.8; O2SAT 81–100
--- NOTE | 2020-03-08 11:45 | RT.EKG_ITS ---
APPROVED REPORT Exam: Resting ECG Patient Location: E HR:71 bpm ECG Measurements Heart Rate 71 AXIS DE 59 P 207 QRSd 142 QRS 21 QT 531 T 7 QTc 549 Conclusion Sinus or ectopic atrial rhythm...P axis (-45,135) Ventricular premature complex...V complex w/ short R-R interval Right bundle branch block...QRSd>120, terminal axis(90,270) Probable left ventricular hypertrophy...multiple LVH criteria Prolonged QT interval...QTc >500mS non-specific ST changes no STEMI I have reviewed and interpreted ECG and agree with software generated interpretation.
--- NOTE | 2020-03-08 12:00 | DI.CT_ITS ---
EXAM: CT HEAD WO CLINICAL HISTORY: Multiple falls. Head trauma. TECHNIQUE: Imaging Protocol: Axial computed tomography images with coronal and sagittal reformatted images were created and reviewed COMPARISON: CT CT HEAD WO from 07/23/2018 FINDINGS: There are no skull fractures nor fluid in the visualized paranasal sinuses. There is no evidence of intracranial hemorrhage, mass effect, or shift of midline structures. There are no extra-axial fluid collections. The ventricles are not enlarged or shifted and there is no blo od within the ventricular system nor within the basal cisterns. IMPRESSION: No acute intracranial findings on this noninfused CT scan of the brain. No significant change from p rior CT scan 07/23/2018. RADIATION DOSE DELIVERED: 803.63mGy.cm Total DLP DATA REPOSITORY: All CT scans at this facility are submitted to the National Radiology Data Registry (NRDR) Dose Index Registry (DIR) with the [employer] ([employer]). RADIATION OPTIMIZATION: All CT scans at this facility use at least one of these dose optimization te chniques: automated exposure control; mA and/or kV adjustment per patient size (includes targeted exa ms where dose is matched to clinical indication); or iterative reconstruction.
--- NOTE | 2020-03-08 12:05 | DI.RAD_ITS ---
EXAM: XR CHEST 2V PA LATERAL CLINICAL HISTORY: Multiple falls. TECHNIQUE: 2D digital imaging was performed. COMPARISON: CR CHEST 2 VIEWS PA,LAT from 12/08/2014 CR CHEST 2 VIEWS PA,LAT from 12/08/2014 CR ABD FLAT UPRIGHT PA CHEST from 02/14/2016 FINDINGS: Heart size is normal. The mediastinum is not widened. Lungs are clear. No infiltrates nor pleural effusions. IMPRESSION: No acute pulmonary findings. DATA REPOSITORY: RADIATION DOSE DELIVERED:
[2020-03-08] MEDS: Normal Saline 1,000 ML 1000 ML IV (12:15)
--- NOTE | 2020-03-08 12:20 | ED.GENADUL_ITS ---
Discharge Plan Disposition Patient Disposition: OTHER Condition: Serious Discharge Details Chief Complaint: GenMedical Clinical Impression: [place] toxicity Primary Care Provider: Jordan Reyes ED Provider: Wesley Quintanilla Home Meds and New Rx's Prescriptions: No Action levothyroxine 112 mcg capsule 112 mcg PO DAILY RF: 0 olanzapine [Zyprexa] 10 mg tablet 20 mg PO HS RF: 0 omeprazole 20 MG capsule,delayed release(DR/EC) 20 mg PO DAILY RF: 0 lithium carbonate 300 mg Tablet Extended Release 900 mg PO HS RF: 0 Excedrin Migraine 250-250-65 mg Tablet 250 mg PO PRN PRNRF: 0 lorazepam 1 mg tablet 1 mg PO HS PRNRF: 0 cholecalciferol (vitamin D3) 25 mcg (1,000 unit) Tablet 1,000 unit PO DAILY RF: 0 polyethylene glycol 3350 [Miralax] 17 gram/dose Powder 17 g PO DAILY RF: 0 ketoconazole 2 % shampoo 1 applic TOPICAL DIRECTED PRNRF: 0 fluocinolone 0.01 % solution 1 applic TOPICAL DAILY PRNRF: 0 omeprazole 20 mg capsule,delayed release(DR/EC) 20 mg PO DAILY RF: 0 Medical Decision Making 59-year-old female, past medical history of bipolar type I, secondary parkinsonism, thyroid disease, GERD, presenting to the ER via her [facility] team for increasing generalized weakness and multiple falls on a daily basis over the past 2 weeks. I was able to speak with her [facility] human services team, they report that her overall demeanor is much more monotone than usual. The patient has no acute concerns or complaints at the moment, denies recent injury or illness. She denies any pain at the moment. She does state that her dizziness is described as feeling off balance and like the room is spinning, nothing makes it better or worse. She is a rather vague and poor historian. Will obtain a cardiac work-up, evaluate for potential arrhythmia, head CT for potential intracranial process, thyroid studies, and a lithium level for potential lithium toxicity. Will obtain chest x-ray and urinalysis for potential infectious process. Patient will be given a single liter IV fluid. Laboratory values reveal a white blood cell count of 6.82 hemoglobin 13.9 hematocrit 42.0 platelet count 234. INR 1.2 sodium 137 potassium 3.4 anion gap 13 creatinine 1.13 with a GFR of 48.95. Glucose 80, calcium 10.4, magnesium 2.0, troponin less than 0.05. TSH 0.08, free T4 1.69. Urinalysis with 80 ketones, negative for nitrate and leuk esterase. 5-10 red and white cells, few bacteria, culture indicated. [place] level of 2.07. Chest x-ray and head CT read by radiology as unremarkable. Patient was receiving her first liter of IV fluid, will give her a second liter of IV fluid. Lunch has been ordered. Based upon her presentation and laboratory values, I believe it is reasonable that her symptoms could be secondary to a lithium toxicity. Her last dose was last night. She lives at home alone, ambulates without assistance, and is certainly a fall risk. I will contact our hospitalist team to discuss admission. Case discussed with Dr. Rodriguez who was agreeable to an observation admission, I will place bridging orders. Medical Records Medical records reviewed: Yes I reviewed the patient's medical records. Lab Data Lab results reviewed: Yes I reviewed the patient's lab results. Lab results narrative: 03/08/20 12:30 Urine - Reflex from Ua Urine Culture - Pending Laboratory Tests Range/Units 03/08/20 03/08/20 03/08/20 12:10 12:10 12:10 WBC (4.4-10.8) 10^3/uL RBC (3.93-5.22) 10^6/uL Hgb (11.2-15.7) g/dL Hct (36.0-46.0) % MCV (80-95) fL MCH (27.0-33.0) pg MCHC (32.0-36.0) % RDW (11.7-14.6) % Plt Count (130-400) 10^3/uL MPV (8.0-11.0) fL Immature Gran % Neutrophils % Lymphocytes % Monocytes % Eosinophils % Basophils % Nucleated RBC % % Absolute Neutrophils (1.2-6.7) 10^3/uL Absolute Lymphocytes (1.2-3.4) 10^3/uL Absolute Monocytes (0.1-0.8) 10^3/uL Absolute Eosinophils (0.0-0.7) 10^3/uL Absolute Basophils (0.0-0.2) 10^3/uL PT (9.3-11.0) sec 11.7 H INR (0.9-1.1) 1.2 H APTT (21.0-27.5) sec 19.7 L Sodium (136-145) mmol/L 137 Potassium (3.5-5.1) mmol/L 3.4 L Chloride (98-107) mmol/L 101 Carbon Dioxide (21.0-32.0) mmol/L 23.0 Anion Gap (3-11) mmol/L 13.0 H BUN (7-18) mg/dL 9 Creatinine (0.55-1.02) mg/dL 1.13 H Estimated GFR/1.73 m2 (mL/min/1.73m2) 48.95 Glucose (74-106) mg/dL 80 Calcium (8.5-10.1) mg/dL 10.4 H Magnesium (1.8-2.4) mg/dL 2.0 Total Bilirubin (0.2-1.0) mg/dL 0.8 AST (15-37) U/L 32 ALT (14-59) U/L 52 Alkaline Phosphatase (46-116) U/L 122 H Troponin I (<0.06) ng/mL < 0.05 Total Protein (6.4-8.2) g/dL 8.0 Albumin (3.4-5.0) g/dL 4.1 TSH (0.36-3.74) uIU/mL 0.08 L Free T4 (0.76-1.46) ng/dL 1.69 H Urine Color (Yellow) Urine Clarity (Clear) Urine pH (5-8) Ur Specific [place] (1.005-1.025) Urine Protein (Negative) mg/dL Urine Ketones (Negative) mg/dL Urine Blood (Negative) Urine Nitrite (Negative) Urine Bilirubin (Negative) Urine Urobilinogen (Up TO 0.2) EU/dL Ur Leukocyte Esterase (Negative) Urine RBC (0-2) HPF Urine WBC (0-5) HPF Ur Epithelial Cells (Negative) HPF Urine Crystals (Negative) HPF Urine Bacteria (Negative) HPF Urine Casts (Negative) LPF Urine Mucus (Negative) Urine Other (Negative) Ur Culture Indicated? Urine Glucose (Negative) mg/dL [place] (0.60-1.20) mmol/L Range/Units 03/08/20 03/08/20 03/08/20 12:10 12:10 12:30 WBC (4.4-10.8) 10^3/uL 6.82 RBC (3.93-5.22) 10^6/uL 4.52 Hgb (11.2-15.7) g/dL 13.9 Hct (36.0-46.0) % 42.0 MCV (80-95) fL 92.9 MCH (27.0-33.0) pg 30.8 MCHC (32.0-36.0) % 33.1 RDW (11.7-14.6) % 12.8 Plt Count (130-400) 10^3/uL 234 MPV (8.0-11.0) fL 12.2 H Immature Gran % 0.3 Neutrophils % 80.2 Lymphocytes % 13.5 Monocytes % 4.7 Eosinophils % 0.9 Basophils % 0.4 Nucleated RBC % % 0 Absolute Neutrophils (1.2-6.7) 10^3/uL 5.47 Absolute Lymphocytes (1.2-3.4) 10^3/uL 0.92 L Absolute Monocytes (0.1-0.8) 10^3/uL 0.32 Absolute Eosinophils (0.0-0.7) 10^3/uL 0.06 Absolute Basophils (0.0-0.2) 10^3/uL 0.03 PT (9.3-11.0) sec INR (0.9-1.1) APTT (21.0-27.5) sec Sodium (136-145) mmol/L Potassium (3.5-5.1) mmol/L Chloride (98-107) mmol/L Carbon Dioxide (21.0-32.0) mmol/L Anion Gap (3-11) mmol/L BUN (7-18) mg/dL Creatinine (0.55-1.02) mg/dL Estimated GFR/1.73 m2 (mL/min/1.73m2) Glucose (74-106) mg/dL Calcium (8.5-10.1) mg/dL Magnesium (1.8-2.4) mg/dL Total Bilirubin (0.2-1.0) mg/dL AST (15-37) U/L ALT (14-59) U/L Alkaline Phosphatase (46-116) U/L Troponin I (<0.06) ng/mL Total Protein (6.4-8.2) g/dL Albumin (3.4-5.0) g/dL TSH (0.36-3.74) uIU/mL Free T4 (0.76-1.46) ng/dL Urine Color (Yellow) Yellow Urine Clarity (Clear) Clear Urine pH (5-8) 6.5 Ur Specific [place] (1.005-1.025) 1.025 Urine Protein (Negative) mg/dL 30 H Urine Ketones (Negative) mg/dL 80 H Urine Blood (Negative) Negative Urine Nitrite (Negative) Negative Urine Bilirubin (Negative) Moderate H Urine Urobilinogen (Up TO 0.2) EU/dL 1.0 H Ur Leukocyte Esterase (Negative) Negative Urine RBC (0-2) HPF 5-10 H Urine WBC (0-5) HPF 5-10 Ur Epithelial Cells (Negative) HPF Negative Urine Crystals (Negative) HPF Negative Urine Bacteria (Negative) HPF Few Urine Casts (Negative) LPF 5-10 hyaline Urine Mucus (Negative) Heavy Urine Other (Negative) Few renal Ur Culture Indicated? Yes Urine Glucose (Negative) mg/dL Negative [place] (0.60-1.20) mmol/L 2.07 H* ECG Data Attestation: I personally reviewed and interpreted this ECG (s) as follows: Interpretation: Please see official report by Dr. Franco. Sinus or ectopic atrial rhythm. Ventricular rate of 71. Prolonged QT interval. No STEMI. HPI General Mode of arrival: ambulatory . Date/Time Provider Initiated Documentation: 03/08/20 11:50 . Limitations to Documentation: no limitations . Information obtained by: patient . HPI Narrative: This is a 59-year-old female past medical history that includes bipolar type I, GERD, hypothyroidism, typically ambulates without assistance, and lives at home by herself. She presented with [facility] services for evaluation of 2-week history of progressive weakness, intermittently feeling off balance, and multiple falls daily. She denies any trauma from the falls. She denies recent illness. Currently she denies any headache, visual changes, neck pain, chest pain, a bdominal pain, nausea, vomiting, numbness, tingling, weakness, change in bowel or bladder function. She states that she took all of her nightly medications yesterday but did not take any today. She does not know what all of her medications are but reports to me that there is been no change in her medications. She is a rather vague and poor historian. Related Data Home Medications Medication Instructions Recorded Confirmed omeprazole 20 mg PO DAILY 11/18/14 03/08/20 lithium carbonate 900 mg PO HS 11/01/17 03/08/20 [id number] 250 mg PO PRN PRN 11/05/17 12/17/19 [Excedrin Migraine] levothyroxine 112 mcg capsule 112 mcg PO DAILY 08/19/18 03/08/20 olanzapine 10 mg tablet 20 mg PO HS 12/18/18 03/08/20 cholecalciferol (vitamin D3) 1,000 unit PO DAILY 03/08/20 03/08/20 fluocinolone 1 applic TOPICAL DAILY PRN 03/08/20 03/08/20 ketoconazole 1 applic TOPICAL DIRECTED PRN 03/08/20 03/08/20 lorazepam 1 mg PO HS PRN 03/08/20 03/08/20 omeprazole 20 mg PO DAILY 03/08/20 03/08/20 polyethylene glycol 3350 [Miralax] 17 g PO DAILY 03/08/20 03/08/20 Allergies Allergy/AdvReac Type Severity Reaction Status Date / Time codeine [Codeine] Allergy Severe Anaphylaxsi Unverified 03/08/20 13:34 s glueten Allergy Intermediate Gi upset Uncoded 03/08/20 13:34 lactose intol Allergy Mild Gi upset Uncoded 03/08/20 13:34 msg AdvReac Mild GI Upset Uncoded 03/08/20 13:34 General Stated Complaint: GenMedical SANDRA: 3 Review of Systems Constitutional Constitutional: Denies fatigue, Denies fever(s), Reports frequent falls and Denies headache(s) Eyes Eyes: Denies change in vision ENT Ears, Nose, Mouth, and Throat: Reports dizziness, Denies headache(s) and Denies neck pain Cardiovascular Cardiovascular: Denies chest pain and Denies dyspnea Respiratory Respiratory: Denies cough and Denies dyspnea Gastrointestinal Gastrointestinal: Denies abdominal pain, Denies nausea and Denies vomiting Genitourinary Genitourinary: Denies dysuria Musculoskeletal Musculoskeletal: Denies back pain, Denies neck pain, Denies numbness and Denies tingling Integumentary/Breasts Skin/Breast: Denies rash Neurologic Neurologic: Reports dizziness, Reports frequent falls, Denies headache(s), Denies numbness, Denies tingling and Reports weakness (Generalized) Psychiatric Psychiatric: Reports anxiety and Reports depression Endocrine Endocrine: Denies fatigue [facility] Medical History (Updated 03/08/20 @ 14:19 by JACQUELINE Cao) Bipolar 1 disorder Colon polyp Constipation Former smoker GERD (gastroesophageal reflux disease) Heart murmur, systolic HSV infection Hyperlipidemia Hypothyroid Lactose intolerance Nephrolithiasis Non-celiac gluten sensitivity Obesity Vitamin D deficiency Surgical History History of section History of cholecystectomy History of colon resection History of hernia repair History of tonsillectomy History of tubal ligation Hx of hysterectomy Social History Smoking/Tobacco Use Status: Former Tobacco Use Smoking risk assessment performed?: Yes Alcohol Intake: never Drug use: Never Household members: none Number of Children: 3 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 Seatbelt use: always Do you feel safe in your relationship?: Yes Exam Const General: cooperative, healthy appearing and comfortable Orientation: alert, awake, oriented to person and oriented to place [facility] Head: normocephalic and atraumatic Head images: 1. Mild nontender ecchymosis Face and sinus: normal facial exam Mouth: moist mucous membranes abnormal (Slightly dry) Eyes General: appearance normal, both eyes and all related structures Alignment and Position: alignment normal Periorbital: periorbital findings normal Eyelids: eyelids normal Conjunctivae: conjunctivae normal Sclera: sclerae normal Cornea: corneas normal Pupils: PERRL EOM: EOM intact bilaterally Direct ophthalmoscopy: normal light reflex Neck Neck: normal visual inspection, full ROM, no meningeal signs, trachea midline, supple and nontender Resp Effort & Inspection: normal respiratory effort and able to speak in complete sentences Auscultation: clear to auscultation bilaterally Cardio Rate: regular rate Rhythm: regular rhythm GI Palpation: soft and nontender Back/Spine/Pelvis Back: No back tenderness Skin General skin exam: no rashes or lesions noted Neuro General: patient alert, patient awake, oriented Patient Orientation: Person and Place, moves all extremities, no focal motor deficits and other (Mild essential tremor) Cranial Nerves: CN's II-XI intact bilaterally Cognition: normal cognition Speech: abnormal speech other (Very slow to respond) Gait: other (Not tested given her multiple falls.) Motor: muscle tone normal throughout Sensory Exam: no sensory deficits noted Extrem General: full ROM and capillary refill normal Right upper extremity: normal to inspection, full ROM and normal capillary refill Left upper extremity: full ROM, normal capillary refill and shoulder/upper arm Details: ecchymosis Shoulder/upper arm images: 1. Ecchymosis, minimal discomfort. Skin is intact Right lower extremity: normal to inspection, full ROM and normal capillary refill Left lower extremity: normal to inspection, full ROM and normal capillary refill Psych Appearance: grossly normal Mental Status: mental status grossly normal Speech and Movement: delayed speech Affect: indifferent Attitude: cooperative Course Vital Signs Vital signs: Vital Signs Temperature 37.6 C H 03/08/20 11:54 Pulse 72 03/08/20 11:54 Respiratory Rate 18 03/08/20 11:54 Blood Pressure 119/75 03/08/20 11:54 Pulse Oximetry 97 03/08/20 11:54 Temperature 37.6 C H 03/08/20 11:54 Temperature Source Skin 03/08/20 11:54 Pulse 65 03/08/20 12:01 Pulse 65 03/08/20 12:10 Respiratory Rate 26 H 03/08/20 12:10 Respiratory Depth Shallow 03/08/20 12:00 Blood Pressure 108/66 03/08/20 12:01 Blood Pressure Mean 76 03/08/20 12:01 Blood Pressure Position Sitting 03/08/20 11:54 Pulse Oximetry 100 03/08/20 12:01 Oxygen Delivery Method Room Air 03/08/20 11:54 Oxygen Flow Rate 0 03/08/20 11:54 Pain Level 0 03/08/20 11:54
[2020-03-08 12:22] LABS: Abs Immature Grans 0.02 10^3/uL (0.0-0.06); Absolute Basophil Count 0.03 10^3/uL (0.0-0.2); Absolute Eosinophil Count 0.06 10^3/uL (0.0-0.7); Absolute Lymphocyte Count 0.92 10^3/uL (1.2-3.4); Absolute Monocyte Count 0.32 10^3/uL (0.1-0.8); Absolute Neutrophil Count 5.47 10^3/uL (1.2-6.7); Basophils % 0.4; Eosinophils % 0.9; HGB 13.9 g/dL (11.2-15.7); Immature Grans % 0.3; Lymphocytes % 13.5; MCH 30.8 pg (27.0-33.0); MCHC 33.1 % (32.0-36.0); MCV 92.9 fL (80-95); MPV 12.2 fL (8.0-11.0); Monocytes % 4.7; Neutrophils % 80.2; Nucleated RBC 0 %; Platelet Count 234 10^3/uL (130-400); RBC 4.52 10^6/uL (3.93-5.22); RDW 12.8 % (11.7-14.6); RDW-SD 43.8 fL; WBC 6.82 10^3/uL (4.4-10.8)
[2020-03-08] MEDS: Normal Saline Flush 10 ML SYR IVP ×2 (12:31→15:20)
[2020-03-08] MEDS: Normal Saline 1,000 ML 125 ML IV ×2 (12:31→21:04)
[2020-03-08 12:34] LABS: Bilirubin Moderate (Negative); Blood Negative (Negative); Clarity Clear (Clear); Glucose Negative (Negative); Ketones 80 mg/dL (Negative); Leukocyte Esterase Negative (Negative); Nitrite Negative (Negative); Specific Gravity 1.025 (1.005-1.025); pH 6.5 (5-8)
[2020-03-08 12:42] LABS: ALT 52 U/L (14-59); AST 32 U/L (15-37); Albumin 4.1 g/dL (3.4-5.0); Alkaline Phosphatase 122 U/L (46-116); BUN 9 mg/dL (7-18); Bilirubin, Total 0.8 mg/dL (0.2-1.0); CREATININE 1.13 mg/dL (0.55-1.02); Calcium 10.4 mg/dL (8.5-10.1); Chloride 101 mmol/L (98-107); Estimated GFR 48.95 (mL/min/1.73m2); Glucose 80 mg/dL (74-106); INR 1.2 (0.9-1.1); Lithium 2.07 mmol/L (0.60-1.20); PTT Activated 19.7 sec (21.0-27.5); Potassium 3.4 mmol/L (3.5-5.1); Prothrombin Time 11.7 sec (9.3-11.0); Sodium 137 mmol/L (136-145)
[2020-03-08 12:43] LABS: Troponin I < 0.05 ng/mL (<0.06)
[2020-03-08 12:47] LABS: Bacteria Few HPF (Negative); C & S Indicated? Yes; Casts 5-10 Hyaline LPF (Negative); Crystals Negative HPF (Negative); Epithelial Cells Negative HPF (Negative); Mucus Heavy (Negative); Other Cells Few Renal (Negative)
[2020-03-08 12:52] LABS: TSH (W/Ref FT4) 0.08 uIU/mL (0.36-3.74)
[2020-03-08 13:12] LABS: FREE T4 1.69 ng/dL (0.76-1.46)
--- NOTE | 2020-03-08 14:55 | NUR.NOTE ---
pt provided with meal tray Nursing Note:
[2020-03-08 15:51] LABS: Troponin I < 0.05 ng/mL (<0.06)
--- NOTE | 2020-03-08 17:20 | PDOC.CMIN ---
- If Service Date Differs Date of service: 03/08/20 Time of Service: 17:39 Care Management Initial Assess REASON FOR HOSPITALIZATION:: [place] Toxicity PAST MEDICAL HISTORY/PAST SURGICAL HISTORY:: Bipolar 1 disorder, secondary parkinsonism, thyroid disease, colon polyp, constipation, former smoker, GERD, systolic heart murmur, HSV infectoin, hyperlipidemia, hypothyroid, lactose intolerance, nephrolithiasis, non-celiac gluten sensitivity, obesity, vitamin D deficiency, section, cholcystectomy, colon resection, hernia repair, tonsillectomy, tubal ligation, hysterectomy PREVIOUS FUNCTIONAL STATUS/SOCIAL/FAMILY SUPPORTS:: Keri resides alone in [place], [place]. She is participant of the FAMILY SOCIOLOGIST program at [facility]. She is , her former , Noah is her main support person per chart review. Independent with ADLs at baseline. CURRENT FUNCTIONAL STATUS:: Currently confused. Oriented to self; knows she is at [facility]. [facility] team brought Keri to ED for increasing generalized weakness and multiple falls on a daily basis over the past 2 weeks. spoke with her [facility] human services team, they report that her overall demeanor is much more monotone than usual. Has patient been provided with info about the portal/API?: No Did the patient sign up for the portal?: No CODE STATUS:: Full Code INSURANCE COVERAGE / FINANCIAL ISSUES:: [facility]. [place] CURRENT HOME/COMMUNITY SERVICES/EQUIPMENT:: MICHELLE Morris. PRIMARY CARE PHYSICIAN:: Jordan Reyes MD. POTENTIAL DISCHARGE NEEDS:: Coordination of care with FAMILY SOCIOLOGIST program, follow up appointments, evaluation for increased service supports, medication recommendations. PATIENT/FAMILY EDUCATION NEEDS:: Review discharge instructions, discuss Ask Me Three. ANTICIPATED BARRIERS TO DISCHARGE:: None identified at this time. TRANSPORTATION:: TBD by mobility and disposition. PLAN:: Keri continues to be closely monitored for suspected lithium toxicity. She has wrap around supports in the community through the FAMILY SOCIOLOGIST program; discharge planning needs will be coordinated with her team. CM continues to follow.
--- NOTE | 2020-03-08 17:50 | W.PM.HP.N ---
Date of service: 03/08/20 Time of Service: 17:50 Assessment and Plan Assessment and plan (1) [place] [employer] toxicity: Status: Acute Assessment and plan: Withhold her lithium and give her IV fluid hydration. Repeat lithium level in the morning. Qualifiers: Encounter type: initial encounter Injury intent: accidental or unintentional Qualified Code(s): T56.891A - Toxic effect of other metals, accidental (unintentional), initial encounter (2) Dehydration: Status: Acute Assessment and plan: IV fluid hydration repeat BMP in the morning (3) Hypokalemia: Status: Acute Assessment and plan: Give oral supplementation repeat electrolytes in the morning (4) Hypothyroid: Status: Chronic Assessment and plan: Withhold her levothyroxine and adjust her dose in the morning Qualifiers: Hypothyroidism type: acquired Qualified Code(s): E03.9 - Hypothyroidism, unspecified (5) Bipolar 1 disorder: Status: Chronic Assessment and plan: Continue her Zyprexa but withhold her lithium History of Present Illness History of Present Illness Chief Complaint: Generalized weakness and frequent falls Narrative: 59-year-old female, past medical history of bipolar type I, secondary parkinsonism, thyroid disease, GERD, presenting to the ER via her [facility] team for increasing generalized weakness and multiple falls on a daily basis over the past 2 weeks. Patient associates her falls with feelings of lightheadedness but also describes some vertigo feelings like the room is spinning. There is been no syncope. She has sustained some contusions and bruises of her labs as well as her forehead. She was sent in to the emergency room for evaluation by [facility] services. Evaluation in the emergency department included a CT scan of her head and neck as well as routine labs including her lithium level. CMP was remarkable for a low potassium level of 3.4 and a minimally elevated creatinine of 1.13 and a calcium of 10.4. Troponin levels x2 sets were negative. TSH was suppressed at 0.08 with an increased free T4 of 1.69. Her CBC was unremarkable. Her lithium level was elevated at 2.07. Urinalysis was remarkable for increased specific gravity 1.025 while at 30 mg/dL protein and a milligrams per deciliter of ketones and moderate urine bilirubin with 5-10 red cells and 5-10 white cells and a few bacteria. CT scan of her head without contrast showed no acute intracranial findings. Chest 2 Views showed no acute pulmonary abnormalities. Patient was started on IV fluids. ER personnel could not manage to safely ambulate her and therefore was recommended that she be admitted for treatment of lithium toxicity and evaluate for her gait instability and frequent falls. Review of Systems All systems reviewed & are unremarkable except as noted in HPI and below Constitutional Constitutional: Denies chills, Denies fever(s), Reports frequent falls, Denies headache(s) and Reports weakness Eyes Eyes: Reports system reviewed and no additional complaints, except as documented ENT Ears, Nose, Mouth, and Throat: Reports system reviewed and no additional complaints, except as documented and Denies headache(s) Cardiovascular Cardiovascular: Reports system reviewed and no additional complaints, except as documented, Denies syncope, Reports lightheadedness and Denies dyspnea Respiratory Respiratory: Denies dyspnea Gastrointestinal Gastrointestinal: Reports system reviewed and no additional complaints, except as documented, Denies abdominal pain and Denies diarrhea Neurologic Neurologic: Reports as per HPI, Denies syncope, Reports frequent falls, Denies headache(s) and Reports weakness [facility] Medical History (Updated 03/08/20 @ 21:37 by Wesley Rodriguez) Bipolar 1 disorder Colon polyp Constipation Former smoker GERD (gastroesophageal reflux disease) Heart murmur, systolic HSV infection Hyperlipidemia Hypothyroid Lactose intolerance Nephrolithiasis Non-celiac gluten sensitivity Obesity Vitamin D deficiency Surgical History History of section History of cholecystectomy History of colon resection History of hernia repair History of tonsillectomy History of tubal ligation Hx of hysterectomy Social History Smoking/Tobacco Use Status: Former Tobacco Use Smoking risk assessment performed?: Yes Alcohol Intake: never Drug use: Never Household members: none Number of Children: 3 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 Seatbelt use: always Do you feel safe in your relationship?: Yes Meds Home Medications and Allergies Home Medications Medication Instructions Recorded Confirmed Type omeprazole 20 mg PO DAILY 11/18/14 03/08/20 History lithium carbonate 900 mg PO HS 11/01/17 03/08/20 History vmmprjn-ddsieckfpnhqv-zdddkocl 250 mg PO PRN PRN 11/05/17 12/17/19 History [Excedrin Migraine] levothyroxine 112 mcg capsule 112 mcg PO DAILY 08/19/18 03/08/20 History olanzapine 10 mg tablet 20 mg PO HS 12/18/18 03/08/20 History cholecalciferol (vitamin D3) 1,000 unit PO DAILY 03/08/20 03/08/20 History fluocinolone 1 applic TOPICAL DAILY PRN 03/08/20 03/08/20 History ketoconazole 1 applic TOPICAL DIRECTED PRN 03/08/20 03/08/20 History lorazepam 1 mg PO HS PRN 03/08/20 03/08/20 History omeprazole 20 mg PO DAILY 03/08/20 03/08/20 History polyethylene glycol 3350 [Miralax] 17 g PO DAILY 03/08/20 03/08/20 History Allergies Allergy/AdvReac Type Severity Reaction Status Date / Time codeine [Codeine] Allergy Severe Anaphylaxsi Unverified 03/08/20 13:34 s glueten Allergy Intermediate Gi upset Uncoded 03/08/20 13:34 lactose intol Allergy Mild Gi upset Uncoded 03/08/20 13:34 msg AdvReac Mild GI Upset Uncoded 03/08/20 13:34 Exam Narrative Exam Narrative: Middle-age female lying in bed in no acute distress wearing her face mask. HEENT is remarkable for an ecchymosis above her left eyebrow. Lungs are clear to auscultation Heart regular rate and rhythm Abdomen soft nontender NABS no palpable masses Extremities she has a bruise along her left humerus as well as some bruising over her left patella Neuro exam is grossly intact and nonfocal. Results Labs Result diagrams: 03/08/20 12:10 03/08/20 12:10 Labs: Laboratory Results - last 24 hr 03/08/20 03/08/20 03/08/20 12:10 12:10 12:10 WBC RBC Hgb Hct MCV MCH MCHC RDW Plt Count MPV Immature Gran % Neutrophils % Lymphocytes % Monocytes % Eosinophils % Basophils % Nucleated RBC % Absolute Neutrophils Absolute Lymphocytes Absolute Monocytes Absolute Eosinophils Absolute Basophils PT 11.7 H INR 1.2 H APTT 19.7 L Sodium 137 Potassium 3.4 L Chloride 101 Carbon Dioxide 23.0 Anion Gap 13.0 H BUN 9 Creatinine 1.13 H Estimated GFR/1.73 m2 48.95 Glucose 80 Calcium 10.4 H Magnesium 2.0 Total Bilirubin 0.8 AST 32 ALT 52 Alkaline Phosphatase 122 H Troponin I < 0.05 Total Protein 8.0 Albumin 4.1 TSH 0.08 L Free T4 1.69 H Urine Color Urine Clarity Urine pH Ur Specific [place] Urine Protein Urine Ketones Urine Blood Urine Nitrite Urine Bilirubin Urine Urobilinogen Ur Leukocyte Esterase Urine RBC Urine WBC Ur Epithelial Cells Urine Crystals Urine Bacteria Urine Casts Urine Mucus Urine Other Ur Culture Indicated? Urine Glucose [place] 03/08/20 03/08/20 03/08/20 12:10 12:10 12:30 WBC 6.82 RBC 4.52 Hgb 13.9 Hct 42.0 MCV 92.9 MCH 30.8 MCHC 33.1 RDW 12.8 Plt Count 234 MPV 12.2 H Immature Gran % 0.3 Neutrophils % 80.2 Lymphocytes % 13.5 Monocytes % 4.7 Eosinophils % 0.9 Basophils % 0.4 Nucleated RBC % 0 Absolute Neutrophils 5.47 Absolute Lymphocytes 0.92 L Absolute Monocytes 0.32 Absolute Eosinophils 0.06 Absolute Basophils 0.03 PT INR APTT Sodium Potassium Chloride Carbon Dioxide Anion Gap BUN Creatinine Estimated GFR/1.73 m2 Glucose Calcium Magnesium Total Bilirubin AST ALT Alkaline Phosphatase Troponin I Total Protein Albumin TSH Free T4 Urine Color Yellow Urine Clarity Clear Urine pH 6.5 Ur Specific [place] 1.025 Urine Protein 30 H Urine Ketones 80 H Urine Blood Negative Urine Nitrite Negative Urine Bilirubin Moderate H Urine Urobilinogen 1.0 H Ur Leukocyte Esterase Negative Urine RBC 5-10 H Urine WBC 5-10 Ur Epithelial Cells Negative Urine Crystals Negative Urine Bacteria Few Urine Casts 5-10 hyaline Urine Mucus Heavy Urine Other Few renal Ur Culture Indicated? Yes Urine Glucose Negative [place] 2.07 H* 03/08/20 15:20 WBC RBC Hgb Hct MCV MCH MCHC RDW Plt Count MPV Immature Gran % Neutrophils % Lymphocytes % Monocytes % Eosinophils % Basophils % Nucleated RBC % Absolute Neutrophils Absolute Lymphocytes Absolute Monocytes Absolute Eosinophils Absolute Basophils PT INR APTT Sodium Potassium Chloride Carbon Dioxide Anion Gap BUN Creatinine Estimated GFR/1.73 m2 Glucose Calcium Magnesium Total Bilirubin AST ALT Alkaline Phosphatase Troponin I < 0.05 Total Protein Albumin TSH Free T4 Urine Color Urine Clarity Urine pH Ur Specific [place] Urine Protein Urine Ketones Urine Blood Urine Nitrite Urine Bilirubin Urine Urobilinogen Ur Leukocyte Esterase Urine RBC Urine WBC Ur Epithelial Cells Urine Crystals Urine Bacteria Urine Casts Urine Mucus Urine Other Ur Culture Indicated? Urine Glucose [place] Last Vital Signs Temp 37.4 C 03/08/20 15:41 Pulse 72 03/08/20 15:41 Resp 18 03/08/20 15:41 BP 104/69 03/08/20 15:41 Pulse Ox 99 03/08/20 15:41 COVID-19 Screening Have you, or household traveled for leisure in last 14 days?: No Had IN PERSON contact w/suspected or confirmed C-19 person: No
[2020-03-08] MEDS: OLANZapine 10 MG TAB 20 MG PO (21:04)
[2020-03-08] MEDS: Acetaminophen 325 MG TAB PO (22:13)
[2020-03-09 00:01] LABS: COVID-19 RT-PCR UVMMC Result Negative (Negative)
[2020-03-09 04:41] VITALS: BP 129/74; PULSE 74; RESP 16; TEMP 36.7; O2SAT 97
[2020-03-09] MEDS: Normal Saline 1,000 ML 125 ML IV (05:04)
[2020-03-09 06:56] LABS: Anion Gap 8.1 mmol/L (3-11); BUN 7 mg/dL (7-18); CO2 22.9 mmol/L (21.0-32.0); CREATININE 0.78 mg/dL (0.55-1.02); Calcium 8.1 mg/dL (8.5-10.1); Chloride 111 mmol/L (98-107); Glucose 104 mg/dL (74-106); Sodium 142 mmol/L (136-145)
[2020-03-09 07:05] LABS: Lithium 1.05 mmol/L (0.60-1.20)
[2020-03-09 07:47] VITALS: PULSE 53
[2020-03-09] MEDS: Omeprazole 20 MG CAPCR PO (07:55)
[2020-03-09] MEDS: Cholecalciferol (Vitamin D3) 1,000 UNIT TAB 1000 UNITS PO (07:55)
[2020-03-09] MEDS: Polyethylene Glycol 3350 17 GM PACKET PO (07:55)
[2020-03-09 08:27] VITALS: BP 110/67; PULSE 56; RESP 18; TEMP 36.5; O2SAT 99
[2020-03-09] MEDS: Potassium Chloride Liquid 20 MEQ PKT 40 MEQ PO (08:29)
[2020-03-09] MEDS: POTASSIUM CHLORIDE 20 MEQ/100 ML BAG 50 MEQ IVPB (09:00)
--- NOTE | 2020-03-09 09:30 | IN_ITS ---
Date of service: 03/09/20 Time of Service: 09:30 PT Notes Visit Reasons: LITHIUM TOXICITY Physical Therapy Inpatient Initial Evaluation Date: 03/09/2020 Referring Doctor: Wesley Rodriguez MD PT Orders: PT CONSULT: Safety consult for D/C Precautions: Fall. Standard. Activity as tolerated Patient Profile/Admitting Diagnosis: Keri is a 59-year-old female with hypothyroidism and bipolar personality disorder who presented to the ED on 03/08/2020 with referral from the [facility] chest team due to increased generalized weakness and multiple falls for the past 2 weeks. Per chart review, there is also a complaint of symptoms of vertigo but no syncope at home. Patient is diagnosed with lithium toxicity, dehydration, hypokalemia. PMHX: Medical History (Updated 03/08/20 @ 21:37 by Wesley Rodriguez) Bipolar 1 disorder Colon polyp Constipation Former smoker GERD (gastroesophageal reflux disease) Heart murmur, systolic HSV infection Hyperlipidemia Hypothyroid Lactose intolerance Nephrolithiasis Non-celiac gluten sensitivity Obesity Vitamin D deficiency Surgical History History of section History of cholecystectomy History of colon resection History of hernia repair History of tonsillectomy History of tubal ligation Hx of hysterectomy Social History/Home Situation: Lives alone in a home with 3 steps to enter with rails on both sides. Keri states that she did not need to use any assistive device and is independent with all aspects of ADLs prior to admission. Equipment Owned/DME: None Subjective: Hopes to go home today. Needed encouragement to participate in today's assessment. States that she is tired and would like to rest. Objective: General Observation: Appeared restless moving back and forth from chair to bed throughout session. IV in the right UE. Affect flat. Mental Status: Patient is alert and is able to follow single step commands with encouragement. Pain: None reported. ROM: Right Upper Extremity: Shoulder Flexion WFL. Shoulder abduction WFL. Elbow flexion WFL. Wrist flexion WFL. Opening and closing of hand WFL. Left Upper Extremity: Shoulder Flexion WFL. Shoulder abduction WFL. Elbow flexion WFL. Wrist flexion WFL. Opening and closing of hand WFL. Right Lower Extremity: Hip flexion WFL. Hip abduction WFL. Knee flexion WFL. Ankle dorsiflexion WFL. Ankle plantarflexion WFL. Left Lower Extremity: Hip flexion WFL. Hip abduction WFL. Knee flexion WFL. Ankle dorsiflexion WFL. Ankle plantarflexion WFL. Strength: Right Upper Extremity: Shoulder flexors 4/5. Shoulder abductors 4/5. Elbow flexors 4/5. Elbow extensors 4/5. Assembly Line Inspector strong. Left Upper Extremity: Shoulder flexors 4/5. Shoulder abductors 4/5. Elbow flexors 4/5. Elbow extensors 4/5. Assembly Line Inspector strong. Right Lower Extremity: Hip flexors 4-/5. Hip abductors 4-/5. Knee flexors 4-/5. Knee extensors 4-/5. Ankle dorsiflexors 4-/5. Ankle plantarflexors 4-/5. Left Lower Extremity: Hip flexors 4-/5. Hip abductors 4-/5. Knee flexors 4-/5. Knee extensors 4-/5. Ankle dorsiflexors 4-/5. Ankle plantarflexors 4-/5. Bed Mobility/Transfers: Rolling supervision Supine to sit supervision Sit to supine supervision Sit to stand supervision Stand to sit supervision Bed to chair supervision Chair to bed supervision Gait: Guided patient through level surface ambulation of 200 feet without an assistive device with full weight bearing on bilateral lower extremities requiring only standby assist of PT and IV pole management of PHARMACY BENEFIT MANAGER Schyan. Positive path deviation noted. Decreased appetite and length, appearing to intermittently shuffle. Denies dizziness, chest pain, headache, and back pain throughout activity. Balance: Static Sitting: Normal Dynamic Sitting: Normal Static Standing: Good Dynamic Standing: Fair Special Tests: Mobility Limitations Standardized Measure [facility] AM-PAC 6 clicks Basic Mobility Inpatient Short Form: Raw Score: 23 CMS Score: 11% deficit 4-stage Balance test: Unable to maintain feet together, semi-tandem, and full tandem stance for 10 seconds indicating balance deficits and increased fall risk. Informed Consent/Education: Patient instructed in purpose of PT consult and plan of care. Assessment: Keri demonstrates supervision with level surface ambulation due to minimal unsteadiness and path deviation during ambulation assessment. She may benefit from the use of a single-point cane in order to maximize [id number] stability during walking. Patient presents with clinical signs and symptoms consistent with current/admitting diagnoses that have resulted to mobility limitations, gait instability, generalized weakness, and impairment of motor control as demonstrated by the following impairment level findings: 1. Decreased strength to B LE major muscle groups 2. Impaired standing balance 3. Impaired activity tolerance Impairments are contributing to the following functional limitations: 1. Inability to safely ambulate without assistive device 2. Increase completion time for mobility ADL performance 3. Increased fall risk 4. Inability to negotiate steps alone safely Patient is assessed as a 41868 moderate complexity based on the following: History: 59-year-old female with impairment level findings, functional limitations, and past medical history as indicated above Examination: Demonstrable impairment in strength, balance, and mobility level with underlying impairments and functional limitations as documented above Presentation:Evolving Decision Makin moderate complexity Goals: Goals X1 week 1. Supine-Sit independent 2. Sit-Supine independent 3. Sit-Stand independent 4. Stand-Sit independent 5. Bed-Chair independent 6. Chair-Bed independent 7. Independent gait on level surface with use of single-point cane for at least 300 feet without report of pain nor dyspnea 8. Independent stair negotiation while holding onto bilateral rails for at least 5 steps without report of pain nor dyspnea 9. Independent with home exercise program 10. Good static and dynamic standing balance/tolerance Plan of Care/Treatment Plan: 1-2x/day, 7 days/week x 1 week. Plan of care has been reviewed with the [employer]RECTION [employer] SUPERVISOR providing the service under Physical Therapy direction. Initiate Physical Therapy intervention for strengthening, bed mobility, transfers, gait, stairs, balance training, use of assistive device. DISCHARGE RECOMMENDATIONS: May benefit from outpatient physical therapy services for continued balance progression to reduce fall risk. TREATMENT CODE/TIME: 78632 x 25 minutes, 86125 x 12 minutes beginning at 9:30 AM. Thank you for the opportunity to participate in the care of this patient. Lyudmila Magallon PT, DPT, CLT [facility] [place], [place]
[2020-03-09 11:16] VITALS: BP 120/73; PULSE 59; RESP 18; TEMP 37.3; O2SAT 97
[2020-03-09 11:19] VITALS: BP 120/73; PULSE 59; RESP 18; TEMP 37.3; O2SAT 97
--- NOTE | 2020-03-09 11:48 | PGE_ITS ---
Date of Service Date of service: 03/09/20 Time of Service: 11:48 Assessment and Plan Assessment and plan (1) [place] toxicity: Status: Resolved Assessment and plan: Resolved by holding her lithium dose last night and given her IV fluid hydration. We will change her lithium carbonate from 900 mg at night to 450 mg twice a day. Recheck lithium level in a week Qualifiers: Encounter type: initial encounter Injury intent: accidental or unintentional Qualified Code(s): T56.891A - Toxic effect of other metals, accidental (unintentional), initial encounter (2) Dehydration: Status: Resolved Assessment and plan: Patient is eating and drinking well. IV fluids been discontinued renal function is normal. We will repeat BMP in a week along with her lithium level. (3) Hypokalemia: Status: Acute Assessment and plan: Given IV and oral supplementation this morning. Repeat level is pending at this time. She may need to go home on some oral supplementation and a repeat BMP in a week. (4) Hypothyroid: Status: Chronic Assessment and plan: TSH is suppressed at 0.08 and free T4 is increased at 1.69. I plan to reduce her levothyroxine from 112 mcg daily down to 100 mcg daily and repeat TSH and free T4 in 6 weeks Qualifiers: Hypothyroidism type: acquired Qualified Code(s): E03.9 - Hypothyroidism, unspecified (5) Bipolar 1 disorder: Status: Chronic Assessment and plan: Continue her Zyprexa resume lithium carbonate CR to 450 mg twice a day (6) Discharge planning issues: Status: Resolved Assessment and plan: Discharge home with resumption of home health services Subjective Subjective Interval history since last seen: Patient did well overnight. This morning she ambulated with physical therapy and then did another couple rounds the nursing floor with the health and physical education professor. Initially the physical therapist recommended use of a single-point cane to help with her balance. However I observed her walking for the health and physical education professor and she pre much just carry the cane the whole time and ambulated with just standby assistance with no loss of balance. Present time I think a cane would only hinder her rather than help her is just something else that she has to worry about caring and possibly tripping over. Her lithium level is down to 1.0. I discussed her case with the pharmacist at [facility] Courtney Abdul, and she thinks that perhaps splitting her lithium carbonate to half her dose and giving it twice a day would help with lower trough levels. This point I think the patient can be discharged home with close follow-up through [facility] I also indicated to Courtney that the patient's TSH is rather suppressed and her free T4 is elevated and that she probably needs an adjustment in her levothyroxine dose. She said she would relay this with Dr. Reyes's office. I will reduce her levothyroxine from 112 mcg daily down to 100 mcg daily in order repeat TSH and free T4 levels in 6 weeks. She should have a follow-up lithium trough level in 1 week. Patient had a low potassium level of 3.0 this morning for which she is received a bolus of IV potassium 20 mEq and given an oral supplement 40 mEq. Repeat level is pending at this time. Heart rate and rhythm shows sinus bradycardia in the range of 49 to low 60s. No PVCs or PACs or heart block. Exam Narrative Exam Narrative: Flat affect but otherwise patient is alert and oriented. She seems to be appropriate answers questions appropriately. She has no complaints other than not getting her lithium last night. Hands without tremors she has good strength and range of motion of both upper and lower extremities. She has a wide-based gait but ambulated without loss of balance. Lungs are clear to auscultation. Heart is regular rate and rhythm. Objective Last Vital Signs Temp 36.5 C 03/09/20 08:27 Pulse 56 L 03/09/20 08:27 Resp 18 03/09/20 08:27 BP 110/67 03/09/20 08:27 Pulse Ox 99 03/09/20 08:27 Laboratory Results - last 24 hr 03/08/20 03/08/20 03/08/20 12:10 12:10 12:10 WBC RBC Hgb Hct MCV MCH MCHC RDW Plt Count MPV Immature Gran % Neutrophils % Lymphocytes % Monocytes % Eosinophils % Basophils % Nucleated RBC % Absolute Neutrophils Absolute Lymphocytes Absolute Monocytes Absolute Eosinophils Absolute Basophils PT 11.7 H INR 1.2 H APTT 19.7 L Sodium 137 Potassium 3.4 L Chloride 101 Carbon Dioxide 23.0 Anion Gap 13.0 H BUN 9 Creatinine 1.13 H Estimated GFR/1.73 m2 48.95 Glucose 80 Calcium 10.4 H Magnesium 2.0 Total Bilirubin 0.8 AST 32 ALT 52 Alkaline Phosphatase 122 H Troponin I < 0.05 Total Protein 8.0 Albumin 4.1 TSH 0.08 L Free T4 1.69 H Urine Color Urine Clarity Urine pH Ur Specific [place] Urine Protein Urine Ketones Urine Blood Urine Nitrite Urine Bilirubin Urine Urobilinogen Ur Leukocyte Esterase Urine RBC Urine WBC Ur Epithelial Cells Urine Crystals Urine Bacteria Urine Casts Urine Mucus Urine Other Ur Culture Indicated? Urine Glucose [place] SARS-CoV-2 (PCR) Nasopharyn COVID-19 PCR Ref Test Perform Site 03/08/20 03/08/20 03/08/20 12:10 12:10 12:30 WBC 6.82 RBC 4.52 Hgb 13.9 Hct 42.0 MCV 92.9 MCH 30.8 MCHC 33.1 RDW 12.8 Plt Count 234 MPV 12.2 H Immature Gran % 0.3 Neutrophils % 80.2 Lymphocytes % 13.5 Monocytes % 4.7 Eosinophils % 0.9 Basophils % 0.4 Nucleated RBC % 0 Absolute Neutrophils 5.47 Absolute Lymphocytes 0.92 L Absolute Monocytes 0.32 Absolute Eosinophils 0.06 Absolute Basophils 0.03 PT INR APTT Sodium Potassium Chloride Carbon Dioxide Anion Gap BUN Creatinine Estimated GFR/1.73 m2 Glucose Calcium Magnesium Total Bilirubin AST ALT Alkaline Phosphatase Troponin I Total Protein Albumin TSH Free T4 Urine Color Yellow Urine Clarity Clear Urine pH 6.5 Ur Specific [place] 1.025 Urine Protein 30 H Urine Ketones 80 H Urine Blood Negative Urine Nitrite Negative Urine Bilirubin Moderate H Urine Urobilinogen 1.0 H Ur Leukocyte Esterase Negative Urine RBC 5-10 H Urine WBC 5-10 Ur Epithelial Cells Negative Urine Crystals Negative Urine Bacteria Few Urine Casts 5-10 hyaline Urine Mucus Heavy Urine Other Few renal Ur Culture Indicated? Yes Urine Glucose Negative [place] 2.07 H* SARS-CoV-2 (PCR) Nasopharyn COVID-19 PCR Ref Test Perform Site 03/08/20 03/08/20 03/09/20 14:50 15:20 06:28 WBC RBC Hgb Hct MCV MCH MCHC RDW Plt Count MPV Immature Gran % Neutrophils % Lymphocytes % Monocytes % Eosinophils % Basophils % Nucleated RBC % Absolute Neutrophils Absolute Lymphocytes Absolute Monocytes Absolute Eosinophils Absolute Basophils PT INR APTT Sodium 142 Potassium 3.0 L Chloride 111 H Carbon Dioxide 22.9 Anion Gap 8.1 BUN 7 Creatinine 0.78 Estimated GFR/1.73 m2 >= 60.00 Glucose 104 Calcium 8.1 L Magnesium Total Bilirubin AST ALT Alkaline Phosphatase Troponin I < 0.05 Total Protein Albumin TSH Free T4 Urine Color Urine Clarity Urine pH Ur Specific [place] Urine Protein Urine Ketones Urine Blood Urine Nitrite Urine Bilirubin Urine Urobilinogen Ur Leukocyte Esterase Urine RBC Urine WBC Ur Epithelial Cells Urine Crystals Urine Bacteria Urine Casts Urine Mucus Urine Other Ur Culture Indicated? Urine Glucose [place] SARS-CoV-2 (PCR) Negative Nasopharyn COVID-19 PCR Not Applicable Ref Test Perform Site [facility] 03/09/20 06:28 WBC RBC Hgb Hct MCV MCH MCHC RDW Plt Count MPV Immature Gran % Neutrophils % Lymphocytes % Monocytes % Eosinophils % Basophils % Nucleated RBC % Absolute Neutrophils Absolute Lymphocytes Absolute Monocytes Absolute Eosinophils Absolute Basophils PT INR APTT Sodium Potassium Chloride Carbon Dioxide Anion Gap BUN Creatinine Estimated GFR/1.73 m2 Glucose Calcium Magnesium Total Bilirubin AST ALT Alkaline Phosphatase Troponin I Total Protein Albumin TSH Free T4 Urine Color Urine Clarity Urine pH Ur Specific [place] Urine Protein Urine Ketones Urine Blood Urine Nitrite Urine Bilirubin Urine Urobilinogen Ur Leukocyte Esterase Urine RBC Urine WBC Ur Epithelial Cells Urine Crystals Urine Bacteria Urine Casts Urine Mucus Urine Other Ur Culture Indicated? Urine Glucose [place] 1.05 SARS-CoV-2 (PCR) Nasopharyn COVID-19 PCR Ref Test Perform Site
[2020-03-09 12:03] VITALS: PULSE 70
[2020-03-09 12:28] LABS: Potassium 4.4 mmol/L (3.5-5.1)
--- NOTE | 2020-03-09 12:46 | PT.INTREAT ---
Date of service: 03/09/20 Time of Service: 11:40 PT Notes Visit Reasons: LITHIUM TOXICITY Inpatient Physical Therapy Treatment Note [facility] Date: 03/09/2020 PRECAUTIONS: Fall SUBJECTIVE: Keri is pleasant and agreeable to participating in PT. She OBJECTIVE: PAIN: No c/o pain BED MOBILITY/TRANSFERS Sit-stand: I Stand-sit: I GAIT: Assistive Device: SPC Weight bearing: Full Assist: SBA Distance: 400' Deviation: No noted path deviation, carried SPC, short step height and length ASSESSMENT: Patient tolerated session well without complaint. She demonstrates improved stability without use of assistive device, without path deviation. PLAN: Patient to discharge to home, per MD. TREATMENT CODE/TIME: 15 minutes; [id number]
--- NOTE | 2020-03-09 13:15 | CMDISCH_ITS ---
LACE Index Scoring Tool - Questions: Length of Stay (in days): 1 Acuity (Admit via E.D.?): Yes E.D. Visits: 1 - Answers: Total Score: 5 Risk of Readmission: Low Risk Care Management Discharge Reason for Hospitalization: [place] Toxicity Discharge Plan: Keri will return home when ready per MD. Dr. Rodriguez will discuss needed medication changes with Keri's provider at [facility]. She has wrap around supports in the community through the [facility] program which will resume upon discharge. She will transport via private vehicle. Patient/Family Education Needs: Review discharge instructions, discuss Ask Me Three. - MH Services (Omit if N/A) Current MH Services: [facility] ([place] toxicity, resume services)
--- NOTE | 2020-03-09 13:59 | DSE_ITS ---
Date of service: 03/09/20 Time of Service: 13:59 DS: Diagnosis Discharge Diagnosis (1) Braddock toxicity: Status: Resolved Asessment and Plan: Patient present with frequent falls and ataxia and was found to be with lithium toxicity and prerenal azotemia. Braddock level on admission was 2.07 and her creatinine was up to 1.13 with a potassium of 3.4. Patient was given IV fluid hydration and her lithium carbonate CR 900 mg was withheld and repeat lithium level was obtained the next morning and it is back down to 1.05. After held discussion with her pharmacist at [facility] it was decided to resume her lithium carbonate CR at 450 mg twice a day and to check repeat levels in 1 week. Patient was given supplemental IV and oral potassium and her potassium level came back 4.4 on the day of discharge. Follow-up BMP will be obtained in 1 week along with her lithium level. (2) Dehydration: Status: Resolved (3) Hypokalemia: Status: Resolved Asessment and Plan: Hypokalemia was resolved with oral and IV supplementation. Repeat BMP will be ordered in 1 week. As the patient is not currently on any diuretic I think if she eats a normal diet her potassium should normalize. Of note on admission she had an elevated anion gap of 13 which also normalized with hydration. Her serum sodium on admission was 137 and her chloride was 101. Therefore I doubt that she has any diabetes insipidus from her lithium. If she continues to exhibit hypokalemia I would work her up for renal tubular acidosis possibly caused by the lithium effects on her renal function. (4) Hypothyroid: Status: Chronic Asessment and Plan: TSH on admission was suppressed at 0.08 and her free T4 was increased at 1.69. Her levothyroxine was withheld and upon discharge it was decreased from 112 mcg daily down to 100 mcg daily. Repeat free T4 and TSH will be ordered to be done in 6 weeks. (5) Bipolar 1 disorder: Status: Chronic Asessment and Plan: No changes were made in her Zyprexa dose. Braddock decreased to 450 mg twice a day. Discharge Plan Disposition Patient Disposition: HOME W/HOME HEALTH SERVICE Condition: Improving Discharge Details Reason For Visit: LITHIUM TOXICITY Admit Date/Time: 03/08/20 14:20 Admit Provider: Wesley Rodriguez Attending Provider: Wesley Rodriguez Primary Care Provider: R[facility] Hospital Course: as well as hypokalemia with a potassium of 3.4 and azotemia with elevated creatinine [id number] female, past medical history of bipolar type I, secondary parkinsonism, thyroid disease, GERD, presenting to the ER via her [facility] team for increasing generalized weakness and multiple falls on a daily basis over the past 2 weeks. Patient was found to have elevated lithium level 2.07 as well as an elevated creatinine 1.13 whereas her baseline creatinine is around 0.97. Potassium level was low at 3.4. Magnesium was normal at 2.0. CBC was within normal limits. TSH was suppressed at 0.08 and her free T4 was elevated 1.69. Troponin I levels were negative x2 sets at less than 0.05. CT scan of her head without contrast showed no acute intracranial abnormalities and no significant change from prior CT scan from July 23, 2018. Chest x-ray was unremarkable. Patient was admitted overnight for observation her lithium and levothyroxine were withheld. She was given IV fluids. Physical therapy was consulted and evaluated her and found her gait to be steady not requiring any assistive devices. As the patient appeared to be stable and her repeat lithium level came down to 1.0 and a creatinine came down to 0.78 after IV fluid hydration and her potassium was corrected to 4.4 with IV and oral supplementation it was felt that she was able to be discharged home with close follow-up with her primary care provider Dr. Reyes as well as her psychiatric nurse practitioner at [facility]. On the day of discharge I called [facility] and spoke with the patient's pharmacist,Griselda Abdul, and we decided to split her lithium dose to bid schedule of lithium carbonate 450 mg bid and to check repeat levels in one week. I also reduced her dose of levothyroxine to 100 mcg daily from her usual dose of 112 mc daily. She is to repeat her TSH and FT4 in 6 weeks. Repeat BMP has been ordered for one week to assess renal function and potassium level. I did not send her home on further potassium supplementation as she should be able to maintain normal levels w/ a normal diet. She is not on a diuretic and has not had diarrhea or vomiting. However, if her potassium levels fall below normal again, then I would recommend working her up for renal tubular acidosis from her lithium. Home Meds and New Rx's Prescriptions: New lithium carbonate 450 mg tablet extended release 450 mg PO BID Qty: 60 RF: 0 levothyroxine 100 mcg tablet 100 mcg PO DAILY Qty: 30 RF: 1 Continued olanzapine [Zyprexa] 10 mg tablet 20 mg PO HS RF: 0 omeprazole 20 MG capsule,delayed release(DR/EC) 20 mg PO DAILY RF: 0 Excedrin Migraine 250-250-65 mg Tablet 250 mg PO PRN PRNRF: 0 lorazepam 1 mg tablet 1 mg PO HS PRNRF: 0 cholecalciferol (vitamin D3) 25 mcg (1,000 unit) Tablet 1,000 unit PO DAILY RF: 0 polyethylene glycol 3350 [Miralax] 17 gram/dose Powder 17 g PO DAILY RF: 0 ketoconazole 2 % shampoo 1 applic TOPICAL DIRECTED PRNRF: 0 fluocinolone 0.01 % solution 1 applic TOPICAL DAILY PRNRF: 0 omeprazole 20 mg capsule,delayed release(DR/EC) 20 mg PO DAILY RF: 0 Discontinued levothyroxine 112 mcg capsule 112 mcg PO DAILY RF: 0 lithium carbonate 300 mg Tablet Extended Release 900 mg PO HS RF: 0 Discharge Instructions Instructions: Braddock (By mouth), Br[place]ock Toxicity (DC) Additional Instructions: Stop your current dose of lithium carbonate 900 mg at bedtime and start the new dose of lithium carbonate 450 mg twice a day beginning tonight. Get a repeat lab work for lithium level along w/ kidney function test (BMP) in one week. You do not need to fast for this but the lithium level needs to be drawn an hour before your next dose of lithium on the day of your labwork. Stand Alone Forms: Nursing Discharge Form Referrals: [facility] [Other] (Please call to make an appointment with Lolita Redman.) Jordan Reyes [Primary Care Provider] - 03/16/20 10:20 am Activity:: Activity as Tolerated Equipment/Supplies:: No Equipment Needed Diet:: Normal Diet Discharge Orders Discharge Orders: Discharge Order (Routine); Ordered 03/09/20 Ordered By: Wesley Reeder Ambulatory Orders: Basic Metabolic Panel (Routine) Timeframe: 1 Week Facility: [facility] - Location: Laboratory Outpatient Ordered By: Wesley Rodriguez Braddock (Routine) Timeframe: 1 Week Facility: [facility] - Location: Laboratory Outpatient Ordered By: Wesley Rodriguez TSH (W/Ref FT4) (Routine) Timeframe: 20200420 Facility: [facility] - Location: Laboratory Outpatient Ordered By: Wesley Rodriguez DS: Summary Status at Discharge Functional status at discharge: independent ambulation Overall status at discharge: patient is back to baseline Mental Status: mental status grossly normal Speech and Movement: speech and movement normal Mood: congruent mood Affect: normal affect Time Spent with Patient providing and/or coordinating discharge services: Greater than 30 minutes Exam Narrative Exam Narrative: Flat affect but otherwise patient is alert and oriented. She seems to be appropriate answers questions appropriately. She has no complaints other than not getting her lithium last night. Hands without tremors she has good strength and range of motion of both upper and lower extremities. She has a wide-based gait but ambulated without loss of balance. Lungs are clear to auscultation. Heart is regular rate and rhythm. Psych Mental Status: mental status grossly normal Speech and Movement: speech and movement normal Mood: congruent mood Affect: normal affect DS: Data Vitals/I&O Vitals and I&O: Vital Signs Temperature 37.3 C 03/09/20 11:19 Temperature Source Tympanic 03/09/20 11:19 Pulse 70 03/09/20 12:03 Pulse Rhythm Irregular 03/09/20 09:16 Pulse 97 H 03/08/20 15:01 Respiratory Rate 18 03/09/20 11:19 Respiratory Effort Non-Labored 03/09/20 09:16 Respiratory Depth Normal 03/09/20 09:16 Respiratory Pattern Normal 03/09/20 09:16 Blood Pressure 120/73 03/09/20 11:19 Blood Pressure Mean 88 03/08/20 15:01 Blood Pressure Position Sitting 03/08/20 11:54 Pulse Oximetry 97 03/09/20 11:19 Oxygen Delivery Method Room Air 03/09/20 11:19 Oxygen Flow Rate 0 03/09/20 11:19 Pain Level 0 03/09/20 11:19 Comment 03/09/20 04:41 Intake & Output 03/08/20 03/09/20 03/09/20 23:59 11:59 23:59 Intake Total 2069.583 / 2069.583 1420 / 1420 Output Total 400 / 400 Balance 1669.583 / 4270.643 7515 / 1420 Weight 61.6 kg 62.9 kg Intake: IV 1949.583 / 2755.720 0912 / 1000 Oral 120 / 120 420 / 420 Output: Urine 400 / 400 Other: Urine Color Yellow Pale Pale Yellow Urine Appearance Clear Clear Clear Urine Odor Normal Normal Comment missed with stool Stool Size Moderate Small Stool Characteristics Liquid Soft Brown Voiding Methods Toilet Toilet Toilet Data Completed and Pending Labs on day of discharge: Labs from last 24 hours 03/09/20 03/09/20 03/09/20 12:12 06:28 06:28 Sodium 142 Potassium 4.4 D 3.0 L Chloride 111 H Carbon Dioxide 22.9 Anion Gap 8.1 BUN 7 Creatinine 0.78 Estimated GFR/1.73 m2 >= 60.00 Glucose 104 Calcium 8.1 L Troponin I [place]addock 1.05 SARS-CoV-2 (PCR) Nasopharyn COVID-19 PCR Ref Test Perform Site 03/08/20 03/08/20 15:20 14:50 Sodium Potassium Chloride Carbon Dioxide Anion Gap BUN Creatinine Estimated GFR/1.73 m2 Glucose Calcium Troponin I < 0.05 [place] SARS-CoV-2 (PCR) Negative Nasopharyn COVID-19 PCR Not Applicable Ref Test Perform [facility] Preliminary micro results at discharge 03/08/20 12:30 Urine Culture - Preliminary Urine - Reflex from [facility] Medical History (Updated 03/09/20 @ 14:04 by Wesley Rodriguez) Bipolar 1 disorder Colon polyp Constipation Former smoker GERD (gastroesophageal reflux disease) Heart murmur, systolic HSV infection Hyperlipidemia Hypothyroid Lactose intolerance Nephrolithiasis Non-celiac gluten sensitivity Obesity Vitamin D deficiency Surgical History History of section History of cholecystectomy History of colon resection History of hernia repair History of tonsillectomy History of tubal ligation Hx of hysterectomy Social History Smoking/Tobacco Use Status: Former Tobacco Use Smoking risk assessment performed?: Yes Alcohol Intake: never Drug use: Never Household members: none Number of Children: 3 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 Seatbelt use: always Do you feel safe in your relationship?: Yes
--- NOTE | 2020-03-09 15:11 | CHAPLAIN ---
Keri was curled up in bed on her side when I visited, but was awake. I introduced myself and explained my role. She thanked me for visiting her and said she need anything right now, but said she appreciated me checking in on her.
--- NOTE | 2020-03-10 09:45 | PT.INDS ---
Date of service: 03/10/20 Time of Service: 09:45 PT Notes Visit Reasons: LITHIUM TOXICITY Physical Therapy Discharge Summary Date: 03/10/2020 Dates of Service: 03/09/2020 only This is a clinical summary of care provided on the duration of dates listed above. No charge was made in the completion of this documentation. Referring Doctor: Wesley Rodriguez MD PT Orders: PT CONSULT: Safety consult for D/C Precautions: Fall. Standard. Activity as tolerated Patient Profile/Admitting Diagnosis: Keri is a 59-year-old female with hypothyroidism and bipolar personality disorder who presented to the ED on 03/08/2020 with referral from the [facility] chest team due to increased generalized weakness and multiple falls for the past 2 weeks. Per chart review, there is also a complaint of symptoms of vertigo but no syncope at home. Patient is diagnosed with lithium toxicity, dehydration, hypokalemia. PMHX: Medical History (Updated 03/08/20 @ 21:37 by Wesley Rodriguez) Bipolar 1 disorder Colon polyp Constipation Former smoker GERD (gastroesophageal reflux disease) Heart murmur, systolic HSV infection Hyperlipidemia Hypothyroid Lactose intolerance Nephrolithiasis Non-celiac gluten sensitivity Obesity Vitamin D deficiency Surgical History History of section History of cholecystectomy History of colon resection History of hernia repair History of tonsillectomy History of tubal ligation Hx of hysterectomy Social History/Home Situation: Lives alone in a home with 3 steps to enter with rails on both sides. Keri states that she did not need to use any assistive device and is independent with all aspects of ADLs prior to admission. Equipment Owned/DME: None Subjective: NT. See most recent [employer] notes. Objective: General Observation: NT. See most recent [employer] notes. Mental Status: NT. See most recent [employer] notes. Pain: NT. See most recent [employer] notes. ROM: Right Upper Extremity: Shoulder Flexion WFL. Shoulder abduction WFL. Elbow flexion WFL. Wrist flexion WFL. Opening and closing of hand WFL. Left Upper Extremity: Shoulder Flexion WFL. Shoulder abduction WFL. Elbow flexion WFL. Wrist flexion WFL. Opening and closing of hand WFL. Right Lower Extremity: Hip flexion WFL. Hip abduction WFL. Knee flexion WFL. Ankle dorsiflexion WFL. Ankle plantarflexion WFL. Left Lower Extremity: Hip flexion WFL. Hip abduction WFL. Knee flexion WFL. Ankle dorsiflexion WFL. Ankle plantarflexion WFL. Strength: Right Upper Extremity: Shoulder flexors 4/5. Shoulder abductors 4/5. Elbow flexors 4/5. Elbow extensors 4/5. 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 Left Upper Extremity: Shoulder flexors 4/5. Shoulder abductors 4/5. Elbow flexors 4/5. Elbow extensors 4/5. 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 Right Lower Extremity: Hip flexors 4-/5. Hip abductors 4-/5. Knee flexors 4-/5. Knee extensors 4-/5. Ankle dorsiflexors 4-/5. Ankle plantarflexors 4-/5. Left Lower Extremity: Hip flexors 4-/5. Hip abductors 4-/5. Knee flexors 4-/5. Knee extensors 4-/5. Ankle dorsiflexors 4-/5. Ankle plantarflexors 4-/5. Bed Mobility/Transfers: Rolling supervision Supine to sit supervision Sit to supine supervision Sit to stand supervision Stand to sit supervision Bed to chair supervision Chair to bed supervision Gait: Guided patient through level surface ambulation of 400 feet without an assistive device with full weight bearing on bilateral lower extremities requiring only standby assist. Denies dizziness, chest pain, headache, and back pain throughout activity. Balance: Static Sitting: Normal Dynamic Sitting: Normal Static Standing: Good Dynamic Standing: Fair 4-stage Balance test: Unable to maintain feet together, semi-tandem, and full tandem stance for 10 seconds indicating balance deficits and increased fall risk. Assessment: Keri demonstrates improved ambulation pattern with diminished path deviation and minimal shakiness. May benefit from OP PT services from advance level balance exercises to maximize safety with community ambulation. Patient presents with clinical signs and symptoms consistent with current/admitting diagnoses that have resulted to mobility limitations, gait instability, generalized weakness, and impairment of motor control as demonstrated by the following impairment level findings: 1. Decreased strength to B LE major muscle groups 2. Impaired standing balance 3. Impaired activity tolerance Impairments are contributing to the following functional limitations: 1. Increase completion time for mobility ADL performance 2. Increased fall risk Goals: Goals X1 week 1. Supine-Sit independent MET 2. Sit-Supine independent MET 3. Sit-Stand independent MET 4. Stand-Sit independent MET 5. Bed-Chair independent MET 6. Chair-Bed independent MET 7. Independent gait on level surface with use of single-point cane for at least 300 feet without report of pain nor dyspnea NOT MET 8. Independent stair negotiation while holding onto bilateral rails for at least 5 steps without report of pain nor dyspnea NOT MET 9. Independent with home exercise program NOT MET 10. Good static and dynamic standing balance/tolerance NOT MET DISCHARGE RECOMMENDATIONS: May benefit from outpatient physical therapy services for continued balance progression to reduce fall risk. TREATMENT CODE/TIME: MA Thank you for the opportunity to participate in the care of this patient. Lyudmila Magallon PT, DPT, CLT [facility] [place], [place]
== END 2020-03-09 15:53 | disposition home health service (06) ==
LOC: ER 14:19 → MS 15:39
PROVIDERS: Admitting Provider Internal Medicine; Emergency Provider Physician Assistant; PCP Family Medicine; Visit Provider Internal Medicine
DX: R27.0 Ataxia, unspecified (principal); T43.595A Adverse effect of other antipsychotics and neuroleptics, initial encounter; R29.6 Repeated falls; M62.81 Muscle weakness (generalized); R42 Dizziness and giddiness; F31.9 Bipolar disorder, unspecified; G21.19 Other drug induced secondary parkinsonism; K59.00 Constipation, unspecified; Z87.891 Personal history of nicotine dependence; K21.9 Gastro-esophageal reflux disease without esophagitis; E78.5 Hyperlipidemia, unspecified; E03.9 Hypothyroidism, unspecified; E55.9 Vitamin D deficiency, unspecified; E86.0 Dehydration; E87.6 Hypokalemia
CPT/HCPCS: 36415; 80048; 80053; 93005; 96360; 96361; 97162; 97530; 99220; 99239; 99285; U0003; 70450; 71046; 80178; 81003; 81015; 83735; 84132; 84439; 84443; 84484; 85025; 85610; 85730; 87086; 93010; 99217; G0378; J3480; J3490

== ENCOUNTER 2020-03-16 11:58 | Outpatient (REF) | payer MEDICARE, MEDICAID, SELFPAY ==
[2020-03-16 14:20] LABS: Anion Gap 10.1 mmol/L (3-11); BUN 8 mg/dL (7-18); CO2 21.9 mmol/L (21.0-32.0); CREATININE 0.81 mg/dL (0.55-1.02); Calcium 10.4 mg/dL (8.5-10.1); Chloride 104 mmol/L (98-107); Glucose 97 mg/dL (74-106); Lithium 1.48 mmol/L (0.60-1.20); Sodium 136 mmol/L (136-145)
== END 2020-03-16 12:18 ==
LOC: NCHCN 11:58
PROVIDERS: PCP Family Medicine; Visit Provider Family Medicine
DX: F31.9 Bipolar disorder, unspecified (principal); Z51.81 Encounter for therapeutic drug level monitoring; Z79.899 Other long term (current) drug therapy; E03.9 Hypothyroidism, unspecified
CPT/HCPCS: 80048; 80178

== ENCOUNTER 2020-03-24 13:53 | Outpatient (REF) | payer MEDICARE, MEDICAID, SELFPAY ==
[2020-03-24 14:23] LABS: Lithium 0.64 mmol/L (0.60-1.20)
== END 2020-03-24 14:13 ==
LOC: NCHCN 13:53
PROVIDERS: PCP Family Medicine; Visit Provider Family Medicine
DX: Z51.81 Encounter for therapeutic drug level monitoring (principal); F31.9 Bipolar disorder, unspecified; T56.891A Toxic effect of other metals, accidental (unintentional), initial encounter
CPT/HCPCS: 80178

== ENCOUNTER → 2020-04-09 13:38 | Outpatient (BNVA) | payer MEDICARE, MEDICAID, SELFPAY | PROVIDERS: PCP Family Medicine; Referring Provider Family Medicine; Visit Provider Physical Therapy Assistant | DX: R63.4 Abnormal weight loss (principal); Z86.010 Personal history of colon polyps; G20 Parkinson's disease | CPT/HCPCS: 99214 ==

== ENCOUNTER 2020-05-05 12:13 | Day surgery (SDC) | payer MEDICARE, MEDICAID, SELFPAY ==
--- NOTE | 2020-05-05 07:10 | ENDO_ITS ---
Date of service: 05/05/20 Time of Service: 14:54 Endoscopy Report DATE OF PROCEDURE: 05/05/20 PRE-OP DIAGNOSIS: unintentional weight loss POST-OP DIAGNOSIS: same PROCEDURE: 1. EGD 2. Colonoscopy with polypectomy SURGEON: Lindsey Leggett ANESTHESIA: other (General/ ASA /) PATHOLOGY: other (Ascending, transverse and descending polyps) COMPLICATIONS: None DISPOSITION: same day INDICATIONS: Unintentional weight loss over the past year with decreased appetite. Her last screening was in 2017 and was remarkable for 3 small polyps Unable to locate the pathology report. She has no family history of colon cancer. She has not had any bowel habit changes. -Discussed colonoscopy bowel prep as well as the procedure. Discussed possible complications of the procedure to include bleeding, pain, perforation, missed small lesion/polyp, sore throat, aspiration and adverse reaction to the medications. Questions were answered to patient?s satisfaction. No guarantees were implied or given. -Discussed Upper endoscopy procedure and the need to be NPO after midnight the night prior. Discussed possible complications of the procedure to include bleeding, pain, perforation, missed small lesion/polyp/ulcers, sore throat, aspiration and adverse reaction to the medications or sedation. Questions were answered to patient?s satisfaction. No guarantees were implied or given. PREP: Miralax/Dulcolax PROCEDURE START TIME: 14:54 PROCEDURE END TIME: 15:32 FINDINGS: Upper endoscopy- normal. No inflammation or ulcers Colonoscopy- multiple small polyps (<10 mm) PROCEDURE DESCRIPTION: After informed consent was obtained the patient was take to the procedure room and placed in a supine position. Monitors were applied and a time out was done. The patients name, date of , procedure type, allergies to medications and metal in their body was reviewed. A bite block was placed and the patient was sedated. Once sedated and comfortable the gastroscope was advanced through the oropharynx which was grossly normal into the esophagus. The proximal, mid- and distal esophagus were normal. The scope was advanced into the stomach and through the pylorus into the 3rd portion of the duodenum. The duodenum was noted to be normal. The scope was retracted back into the stomach. There was no inflammation noted in the stomach. There were no ulcers. The scope was retro- flexed. The cardia and fundus were noted to be normal. There was no hiatal hernia noted. The scope was retracted back into the esophagus. The Z line was regular. The GE junction was at 35 cm. While the patient was still sedated they were placed in a left decubitous position. A rectal exam was done. External exam was normal. Internal exam revealed a normal sphincter tone and no palpable masses. The scope was then introduced and retro-flexed. no internal hemorrhoids, masses or polyps were identified on retroflexion. The scope was then advanced to the cecum without difficulty. The ileocecal valve and appendiceal orifice were identified. The prep was good. The scope was then slowly retracted over 13 minutes back into the rectum. Polyps were removed with cold forceps in the ascending colon x1, transverse colon x1 and descending colon x1. There was no diverticulosis noted. The scope was removed and the patient was woken up and taken back to Same day surgery in stable condition. The patient tolerated the procedure well and there were no immediate complications. Follow up: I could not find a reason for her weight loss. Polyps were removed and send to pathology. Next colonoscopy recommendation will depend on pathology results.
--- NOTE | 2020-05-05 07:13 | W.PM.DSUDISC ---
Discharge Plan Disposition Patient Disposition: HOME Condition: Good Discharge Details Reason For Visit: unintentional weight loss Attending Provider: Lindsey Leggett Primary Care Provider: Jordan Reyes Home Meds and New Rx's Prescriptions: Continued sennosides [Natural Senna Laxative] 8.6 mg tablet 8.6 mg PO QHS RF: 0 olanzapine [Zyprexa] 10 mg tablet 20 mg PO HS RF: 0 Excedrin Migraine 250-250-65 mg Tablet 250 mg PO PRN PRNRF: 0 lorazepam 1 mg tablet 1 mg PO HS PRNRF: 0 cholecalciferol (vitamin D3) 25 mcg (1,000 unit) Tablet 1,000 unit PO DAILY RF: 0 polyethylene glycol 3350 [Miralax] 17 gram/dose Powder 17 g PO DAILY RF: 0 ketoconazole 2 % shampoo 1 applic TOPICAL DIRECTED PRNRF: 0 fluocinolone 0.01 % solution 1 applic TOPICAL DAILY PRNRF: 0 omeprazole 20 mg capsule,delayed release(DR/EC) 20 mg PO DAILY RF: 0 lithium carbonate 450 mg tablet extended release 450 mg PO BID Qty: 60 RF: 0 levothyroxine 100 mcg tablet 100 mcg PO DAILY Qty: 30 RF: 1 Discontinued polyethylene glycol 3350 17 gram/dose powder 238 g PO ONCE Qty: 238 RF: 0 bisacodyl [Dulcolax (bisacodyl)] 5 mg tablet,delayed release (DR/EC) 5 mg PO ONCE Qty: 4 RF: 0 Discharge Instructions Additional Instructions: Findings:Normal Upper endoscopy 3 small polyps in the large bowel No findings to explain weight loss Follow up: 5 years hanks next colonoscopy Please call if you develop: fevers >101.5 Nausea or Vomiting Abdominal pain that is not transient DAY SURGERY UNIT POST ENDOSCOPY INSTRUCTIONS 1. Because there will be medication in your system for the next 24 hours, you may feel a little sleepy. Your coordination will be affected. Therefore: a. Do not drive or operate dangerous equipment for 24 hours. b. Do not drink alcohol beverages for 24 hours (not even beer). c. Plan to go home and rest for the day. 2. Generally there are no restrictions on your activity after a day or so has gone by, but you may feel a bit fatigued for a few days. 3 After you arrive home you may have a light meal and return to a normal diet as you can tolerate it without feeling sick to your stomach. 4. After surgery, you may feel pain or discomfort. This should be only transient, but if it persists please contact your doctor. 5. If there are any questions regarding the findings of your procedure, please feel free to contact your doctor. 6. If you are unable to contact your doctor with a problem, contact the hospital at [phone]. 7. Continue all your regular medications unless directed otherwise. I understand the above instructions and have no questions. Signature of Patient or Responsible Adult Escort Date/Time Name of Responsible Adult Escort Signature of Nurse Date/Time Activity:: Activity as Tolerated Diet:: As Tolerated Discharge Orders Discharge Orders: Discharge Order (Routine); Ordered 05/05/20 Ordered By: Lindsey Leggett
[2020-05-05 12:33] VITALS: BP 119/79; PULSE 49; RESP 16; TEMP 36.5; O2SAT 97
[2020-05-05] MEDS: Lactated Ringers 1,000 ML 80 ML IV (13:24)
--- NOTE | 2020-05-05 15:15 | BOWEL_PTH ---
PATIENT: Keri Ward LOC: [facility] U#:[id number] AGE/SX: 59/F ROOM: RE05/05/[address]: Lindsey Leggett MD : 1960 BED: DIS: 05/05/2020 SPEC #: [id number] RECD: 05/05/20 17:15 STATUS: LILIANE RE #: [id number] ELVIRA: 05/05/20 15:[address]: Lindsey Leggett DEPT: Surgical Specimen RECD BY: Dalia Lindsey ENTERED: 05/05/20 17:16 SP TYPE: Bowel OTHR DR: Jordan Reyes Tissues: 1 - BIOPSY BOWEL 2 - BIOPSY BOWEL 3 - BIOPSY BOWEL Procedures: GROSS AND MICRO LEVEL 4 Comments: [id number]
[2020-05-05 16:09] VITALS: BP 110/79; PULSE 79; RESP 18; TEMP 36.4; O2SAT 98
== END 2020-05-05 16:58 | disposition home or self-care (01) ==
LOC: SUR 12:14
PROVIDERS: PCP Family Medicine; Visit Provider Surgery
PROC: (CPT 45380; principal; 2020-05-05 12:15)
DX: Z12.11 Encounter for screening for malignant neoplasm of colon (principal); D12.2 Benign neoplasm of ascending colon; D12.3 Benign neoplasm of transverse colon; K62.1 Rectal polyp; Z86.010 Personal history of colon polyps; R63.4 Abnormal weight loss
CPT/HCPCS: 45380; 43235; 88305; J2001

== ENCOUNTER → 2020-05-18 11:03 | Outpatient (BNVA) | payer MEDICARE, MEDICAID, SELFPAY | PROVIDERS: PCP Family Medicine; Referring Provider Family Medicine; Visit Provider Surgery | DX: Z48.815 Encounter for surgical aftercare following surgery on the digestive system (principal); K62.1 Rectal polyp | CPT/HCPCS: 99213 ==

== ENCOUNTER 2020-06-09 19:13 | Outpatient (REF) | payer MEDICARE, MEDICAID, SELFPAY ==
[2020-06-09 19:35] LABS: Lithium 0.9 mmol/l (0.6-1.2)
[2020-06-09 19:53] LABS: ALT 21 U/L (14-59); AST 16 U/L (15-37); Albumin 3.9 g/dL (3.4-5.0); Alkaline Phosphatase 101 U/L (46-116); Anion Gap 9.4 mmol/L (3-11); BUN 10 mg/dL (7-18); Bilirubin, Total 0.4 mg/dL (0.2-1.0); CO2 25.6 mmol/L (21.0-32.0); Calcium 10.6 mg/dL (8.5-10.1); Chloride 108 mmol/L (98-107); Estimated GFR 56.37 (mL/min/1.73m2); Glucose 111 mg/dL (74-106); Sodium 143 mmol/L (136-145); TSH (W/Ref FT4) 1.41 uIU/mL (0.36-3.74); Total Protein 7.5 g/dL (6.4-8.2)
[2020-06-11 11:15] LABS: Parathyroid Hormone,Intact 107 pg/mL (19-88)
== END 2020-06-09 19:14 | disposition home or self-care (01) ==
LOC: NCHCN 19:13
PROVIDERS: PCP Family Medicine; Visit Provider Family Medicine
DX: E03.9 Hypothyroidism, unspecified (principal); E21.0 Primary hyperparathyroidism; Z79.899 Other long term (current) drug therapy; Z51.81 Encounter for therapeutic drug level monitoring
CPT/HCPCS: 80053; 80178; 83970; 84443

== ENCOUNTER → 2020-06-16 14:34 | Outpatient (BNVA) | payer MEDICARE, MEDICAID, SELFPAY | PROVIDERS: PCP Family Medicine; Visit Provider Psychiatry & Neurology Neurology | DX: G21.11 Neuroleptic induced parkinsonism (principal); R41.3 Other amnesia | CPT/HCPCS: 99213 ==

== ENCOUNTER 2020-09-14 10:05 | Outpatient (CLI) | payer MEDICARE, MEDICAID, SELFPAY ==
[2020-09-14 18:11] LABS: Anion Gap 5.3 mmol/L (3-11); BUN 7 mg/dL (7-18); CO2 29.7 mmol/L (21.0-32.0); CREATININE 0.9 mg/dL (0.55-1.02); Calcium 10.3 mg/dL (8.5-10.1); Chloride 109 mmol/L (98-107); Glucose 81 mg/dL (74-106); Potassium 4.1 mmol/L (3.5-5.1); Sodium 144 mmol/L (136-145); TSH (W/Ref FT4) 2.23 uIU/mL (0.36-3.74)
== END 2020-09-14 10:06 | disposition home or self-care (01) ==
LOC: LBO 10:10
PROVIDERS: PCP Family Medicine; Visit Provider Internal Medicine
DX: E03.9 Hypothyroidism, unspecified (principal); E87.6 Hypokalemia; E86.0 Dehydration; R79.89 Other specified abnormal findings of blood chemistry
CPT/HCPCS: 36415; 80048; 84443

== ENCOUNTER 2020-11-29 03:51 | Outpatient (CLI) | payer MEDICARE, MEDICAID, SELFPAY ==
[2020-11-29 14:22] LABS: Abs Immature Grans 0.02 10^3/uL (0.0-0.06); Absolute Basophil Count 0.03 10^3/uL (0.0-0.2); Absolute Eosinophil Count 0.12 10^3/uL (0.0-0.7); Absolute Monocyte Count 0.36 10^3/uL (0.1-0.8); Absolute Neutrophil Count 5.19 10^3/uL (1.2-6.7); Basophils % 0.4; Eosinophils % 1.6; HCT 39.2 % (36.0-46.0); HGB 12.8 g/dL (11.2-15.7); Immature Grans % 0.3; Lymphocytes % 24.9; MCH 30.7 pg (27.0-33.0); MCHC 32.7 % (32.0-36.0); MPV 11.7 fL (8.0-11.0); Monocytes % 4.7; Neutrophils % 68.1; Nucleated RBC 0 %; Platelet Count 183 10^3/uL (130-400); RBC 4.17 10^6/uL (3.93-5.22); RDW 12.4 % (11.7-14.6); RDW-SD 43.5 fL; WBC 7.62 10^3/uL (4.4-10.8)
[2020-11-29 14:39] LABS: Hemoglobin A1C 5.3 % (<5.7)
[2020-11-29 16:10] LABS: Lithium 0.8 mmol/l (0.6-1.2)
[2020-11-29 16:33] LABS: Vitamin D 25 Total 33.2 ng/mL (30-100)
[2020-11-29 16:41] LABS: ALT 22 U/L (14-59); AST 20 U/L (15-37); Alkaline Phosphatase 82 U/L (46-116); Anion Gap 8.1 mmol/L (3-11); BUN 6 mg/dL (7-18); Bilirubin, Total 0.4 mg/dL (0.2-1.0); CO2 27.9 mmol/L (21.0-32.0); CREATININE 0.9 mg/dL (0.55-1.02); Calcium 10.3 mg/dL (8.5-10.1); Calculated LDL 117 mg/dL (<100); Chloride 108 mmol/L (98-107); Cholesterol 178 mg/dL (<200); Ferritin 25 ng/mL (8-252); Folate 7.9 ng/mL (8.6-20.0); Glucose 78 mg/dL (74-106); HDL Cholesterol 40 mg/dL (40-60); Magnesium 2.1 mg/dL (1.8-2.4); Potassium 4.1 mmol/L (3.5-5.1); Sodium 144 mmol/L (136-145); TSH 1.37 uIU/mL (0.36-3.74); Total Protein 7.4 g/dL (6.4-8.2); Triglyceride 105 mg/dL (<150); Vitamin B12 237 pg/mL (193-986)
[2020-11-29 17:35] LABS: C-Reactive Protein 0.06 mg/dL (0.0-0.3); FREE T4 1.07 ng/dL (0.76-1.46)
== END 2020-11-29 03:52 | disposition home or self-care (01) ==
LOC: LBO 03:52
PROVIDERS: PCP Family Medicine; Visit Provider Psychiatry & Neurology Psychiatry
DX: Z79.899 Other long term (current) drug therapy (principal); F31.9 Bipolar disorder, unspecified
CPT/HCPCS: 36415; 80053; 80061; 82306; 80178; 82607; 82728; 82746; 83036; 83735; 84439; 84443; 84481; 85025; 86140

== ENCOUNTER 2021-02-02 11:55 | Emergency (ER) | payer MEDICARE, MEDICAID, SELFPAY ==
[2021-02-02 12:06] VITALS: BP 113/73; PULSE 77; RESP 12; TEMP 37.6; O2SAT 96
--- NOTE | 2021-02-02 12:15 | DI.CT_ITS ---
Exam(s) CT HEAD WO EXAM: CT HEAD WO CLINICAL HISTORY: confusion post fall with HI. TECHNIQUE: Imaging Protocol: Axial computed tomography images with coronal and sagittal reformatted images were created and reviewed COMPARISON: CT CT HEAD WO from 03/08/2020 FINDINGS: Ventricles and Extra axial spaces: Normal in size and morphology for the patient's age. Hemorrhage: None. Cerebral parenchyma: Normal. Midline shift: None. Brainstem/Cerebellum: Normal. Calvarium: Normal. Visualized Paranasal sinuses/Mastoids: Clear. Soft Tissues: Unremarkable. IMPRESSION: 1. No acute intracranial process. 2. Results of this exam have been verbally communicated with provider. RADIATION DOSE DELIVERED: 842.02mGy.cm Total DLP DATA REPOSITORY: All CT scans at this facility are submitted to the National Radiology Data Registry (NRDR) Dose Index Registry (DIR) with the [employer] (ACR). RADIATION OPTIMIZATION: All CT scans at this facility use at least one of these dose optimization te chniques: automated exposure control; mA and/or kV adjustment per patient size (includes targeted exa ms where dose is matched to clinical indication); or iterative reconstruction.
--- NOTE | 2021-02-02 13:15 | ED.GENADUL_ITS ---
Discharge Plan Disposition Patient Disposition: HOME Condition: Stable Discharge Details Clinical Impression: Concussion Primary Care Provider: Jordan Reyes ED Provider: Dalia Iqbal Home Meds and New Rx's Prescriptions: Continued levothyroxine 100 mcg tablet 120 mcg PO DAILY RF: 0 lithium carbonate 450 mg tablet extended release 450 mg PO TID RF: 0 sennosides [Natural Senna Laxative] 8.6 mg tablet 8.6 mg PO QHS RF: 0 olanzapine [Zyprexa] 10 mg tablet 20 mg PO HS RF: 0 Excedrin Migraine 250-250-65 mg Tablet 250 mg PO PRN PRNRF: 0 lorazepam 1 mg tablet 1 mg PO HS PRNRF: 0 omeprazole 20 mg capsule,delayed release(DR/EC) 20 mg PO DAILY RF: 0 Discharge Instructions Instructions: Concussion (ED) Additional Instructions: Please follow-up with your primary care physician in 1 to 2 days for reassessment I suspect you have a concussion, it is important that you follow-up with your primary care physician for that we can be sure your symptoms are resolved, symptoms from concussion can last anywhere from 1 week to several months I recommend allowing the brain to rest, this means your reading and television use, decrease technology use You may take Tylenol as needed for discomfort and return earlier should you have vomiting, worsening headache, fever, vision change, dizziness, additional falls or injuries, or should you have new or worsening complaints Referrals: Jordan Reyes [Primary Care Provider] - Discharge Data Discharge Date/Time-TO BE ENTERED AT DEPARTURE: 02/02/21 14:35 Medical Decision Making Patient is alert and oriented, she is ambulatory with steady gait, CT scan does not show acute abnormality I the care with patient field care coordinator and she feels comfortable discharge home at this time, patient does live independently but patient is cognitively intact She will be referred back to her primary care physician and request outpatient reassessment, she was placed on follow-up list for PCP I also discussed with Opal, patient field care coordinator meant provider and she will follow closely, infectious driving patient back to her residence this time Patient discharged home in stable condition with stable vitals There is no vomiting or any other findings consistent with need for admission I suspect her symptoms are related to recent head injury and patient has mild concussion She is aware that her symptoms sure may persist for 1 to 6 weeks She given low threshold to return should she have new or worsening complaints After considered alternative reasons for her difficulties with reading comprehension, however she had a recent lithium level and her symptoms closely follow the head injury, suspicion for more ominous pathology is low HPI General Mode of arrival: ambulatory . Date/Time Provider Initiated Documentation: 02/02/21 11:56 . Limitations to Documentation: no limitations . Information obtained by: patient . HPI Narrative: This 60-year-old female with history of bipolar, hypothyroidism presents with report of fall on Sunday. Patient reportedly slipped on the bathroom floor. She fell backwards, hitting her head on the corner of the tub. She denies any loss of consciousness and was ambulatory after the event but states that she went downstairs to read and had was having difficulty comprehending what she read. She states that this is been persistent since a fall and head injury. She denies any dizziness. She denies current headache. She denies any history of coagulopathy. She denies any vision changes or vomiting. Denies prior head injuries in the past. Denies any incontinence of urine or tongue injury associated. States that her symptoms have been persistent but not worsening. States this is predominantly short-term memory and feels like her long-term memory is intact. Predominantly she notices this with reading comprehension. Related Data Home Medications Medication Instructions Recorded Confirmed Excedrin Migraine 250 mg PO PRN PRN 11/05/17 06/16/20 olanzapine 10 mg tablet 20 mg PO HS 12/18/18 06/16/20 lorazepam 1 mg PO HS PRN 03/08/20 06/16/20 omeprazole 20 mg PO DAILY 03/08/20 06/16/20 sennosides 8.6 mg tablet 8.6 mg PO QHS 04/09/20 06/16/20 levothyroxine 100 mcg tablet 120 mcg PO DAILY tab 06/16/20 06/16/20 lithium carbonate 450 mg 450 mg PO TID tab 06/16/20 06/16/20 tablet,extended release Allergies Allergy/AdvReac Type Severity Reaction Status Date / Time codeine [Codeine] Allergy Severe Anaphylaxsi Unverified 02/02/21 12:09 s glueten Allergy Intermediate Gi upset Uncoded 02/02/21 12:09 lactose intol Allergy Mild Gi upset Uncoded 02/02/21 12:09 msg AdvReac Mild GI Upset Uncoded 02/02/21 12:09 General Stated Complaint: HeadInjury SANDRA: 4 Review of Systems All systems reviewed & are unremarkable except as noted in HPI and below PFSH Medical History Abdominal pain Adenomatous colon polyp Aortic insufficiency Bipolar 1 disorder Colon polyp Constipation Former smoker GERD (gastroesophageal reflux disease) Heart murmur, systolic HSV infection Hyperlipidemia Hypothyroid Lactose intolerance [place] use Memory impairment Nephrolithiasis 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 Seatbelt use: always Do you feel safe at home: Yes Do you feel safe in your relationship?: Yes Exam Const General: cooperative, comfortable and no acute distress HENMT Head: normal to inspection Other: No hemotympanum No hemotympanum No visible sign of trauma Eyes Pupils: PERRL EOM: EOM intact bilaterally Neck Other: No midline tenderness Resp Effort & Inspection: normal respiratory effort Auscultation: clear to auscultation bilaterally Cardio Rate: regular rate Rhythm: regular rhythm Neuro General: patient alert and patient oriented x3 Cranial Nerves: CN's II-XI intact bilaterally Speech: speech normal Gait: normal gait Motor: muscle tone normal throughout Sensory Exam: no sensory deficits noted Psych Appearance: grossly normal and well kempt Other: Flat affect Course Vital Signs Vital signs: Vital Signs Temperature 37.6 C 02/02/21 12:06 Pulse 77 02/02/21 12:06 Respiratory Rate 12 02/02/21 12:06 Blood Pressure 113/73 02/02/21 12:06 Pulse Oximetry 96 02/02/21 12:06 Temperature 37.6 C 02/02/21 12:06 Temperature Source Temporal Artery Scan 02/02/21 12:06 Pulse 77 02/02/21 12:06 Respiratory Rate 12 02/02/21 12:06 Respiratory Effort Non-Labored 02/02/21 12:08 Blood Pressure 113/73 02/02/21 12:06 Blood Pressure Position Supine 02/02/21 12:06 Pulse Oximetry 96 02/02/21 12:06 Oxygen Delivery Method Room Air 02/02/21 12:06 Oxygen Flow Rate 0 02/02/21 12:06 Pain Level 0 02/02/21 12:06
--- NOTE | 2021-02-03 08:40 | NUR.NOTE ---
referral to cm for concussion follow up with pcp
--- NOTE | 2021-02-03 10:33 | PDOC.ERCMACT ---
- If Service Date Differs Date of service: 02/03/21 Time of Service: 10:33 Care Management Activity Note Keri is seen in the ED for a concussion. At the request of ED provider, NIKITA telephones Keri's PCP's office, [facility], to request that they outreach to Keri and schedule a follow up appointment in 1 - 2 days.
== END 2021-02-02 14:35 | disposition home or self-care (01) ==
PROVIDERS: Emergency Provider Physician Assistant; PCP Family Medicine
DX: S06.0X0A Concussion without loss of consciousness, initial encounter (principal); W01.198A Fall on same level from slipping, tripping and stumbling with subsequent striking against other object, initial encounter
CPT/HCPCS: 99284; 70450; 99283

== ENCOUNTER 2021-06-06 01:25 | Outpatient (CLI) | payer MEDICARE, MEDICAID, SELFPAY ==
--- NOTE | 2021-06-06 15:00 | DI.MAMMO_ITS ---
Exam(s) MAMMO SCREENING EXAM: MAMMO SCREENING CLINICAL HISTORY: SCREENING, [facility], Z00.00 TECHNIQUE: Mammograms were interpreted according to the usual protocol including computer analysis w [employer] CAD system, tomosynthesis and C-view imaging. COMPARISON: 2012 FINDINGS: The breasts are composed of scattered fibroglandular densities, Breast Density category B. No suspicious masses or suspicious microcalcifications are seen. No skin thickening or abnormal axillary lymph nodes are seen. There has been no significant change from prior exams. IMPRESSION: BI-RADS Category 1, Negative mammogram Yearly screening mammography is recommended. Breast Density - Category B, scattered fibroglandular densities. A negative radiographic report should not delay biopsy if a dominant or clinically suspicious mass is present. Up to ten percent of cancers are not identified on mammography. A negative report may reinforce clinical impression. Adenosis and dense breasts may obscure an underlying neoplasm. False positive reports average 6 to 10%. Patient will receive a letter notifying them of these results.
== END 2021-06-06 01:45 ==
PROVIDERS: PCP Family Medicine; Visit Provider Family Medicine
DX: Z12.31 Encounter for screening mammogram for malignant neoplasm of breast (principal)
CPT/HCPCS: 77063; 77067

== ENCOUNTER 2021-07-22 01:59 | Outpatient (CLI) | payer MEDICARE, MEDICAID, SELFPAY ==
[2021-07-22 14:22] LABS: Abs Immature Grans 0.02 10^3/uL (0.0-0.06); Absolute Basophil Count 0.03 10^3/uL (0.0-0.2); Absolute Eosinophil Count 0.15 10^3/uL (0.0-0.7); Absolute Neutrophil Count 5.32 10^3/uL (1.2-6.7); Basophils % 0.4; Eosinophils % 1.9; HCT 39.8 % (36.0-46.0); HGB 12.9 g/dL (11.2-15.7); Immature Grans % 0.3; Lymphocytes % 24.6; MCH 30.5 pg (27.0-33.0); MCHC 32.4 % (32.0-36.0); MCV 94 fL (80-95); MPV 10.8 fL (8.0-11.0); Monocytes % 3.9; Neutrophils % 68.9; Platelet Count 284 10^3/uL (130-400); RBC 4.23 10^6/uL (3.93-5.22); RDW 13.1 % (11.7-14.6); RDW-SD 45.1 fL; WBC 7.72 10^3/uL (4.4-10.8)
[2021-07-22 15:46] LABS: ALT 17 U/L (14-59); AST 14 U/L (15-37); Alkaline Phosphatase 93 U/L (46-116); BUN 9 mg/dL (7-18); Bilirubin, Total 0.4 mg/dL (0.2-1.0); CREATININE 1.1 mg/dL (0.55-1.02); Calcium 10.1 mg/dL (8.5-10.1); Chloride 106 mmol/L (98-107); Estimated GFR 50.33 (mL/min/1.73m2); Folate 6.9 ng/mL (8.6-20.0); Glucose 102 mg/dL (74-106); Magnesium 1.9 mg/dL (1.8-2.4); Potassium 4.1 mmol/L (3.5-5.1); Sodium 140 mmol/L (136-145); TSH 0.41 uIU/mL (0.36-3.74); Total Protein 7.3 g/dL (6.4-8.2); Vitamin B12 208 pg/mL (193-986)
[2021-07-22 15:49] LABS: Lithium 0.9 mmol/l (0.6-1.2)
[2021-07-22 21:00] LABS: FREE T4 1.16 ng/dL (0.76-1.46)
[2021-07-22 22:09] LABS: T3,Free 3.3 pg/mL (2.8-5.3)
[2021-07-25 09:02] LABS: Homocysteine 15.5 umol/L (5.0-13.9)
== END 2021-07-22 02:00 | disposition home or self-care (01) ==
LOC: LBO 01:59
PROVIDERS: Psychiatry & Neurology Psychiatry; PCP Family Medicine; Visit Provider Family Medicine
DX: F31.9 Bipolar disorder, unspecified (principal); Z79.899 Other long term (current) drug therapy; Z51.81 Encounter for therapeutic drug level monitoring
CPT/HCPCS: 36415; 80053; 80061; 80307; 80360; 83090; 80178; 80354; 82525; 82607; 82652; 82728; 82746; 83036; 83735; 84439; 84443; 84481; 84630; 85025